=== PATIENT | female | born 1970 | race Caucasian/White ===

== ENCOUNTER 2021-02-25 08:48 | Observation (INO) | payer OTHER, SELFPAY ==
[2021-02-25] VITALS (14 sets, daily range): BP systolic 102–159; BP diastolic 70–89; PULSE 84–109; RESP 16–18; TEMP 36.1–37.6; O2SAT 92–97; BMI 36.6; BMI 37.5
--- NOTE | 2021-02-25 | APP_PTH ---
PATIENT: TONA LEVINE LOC: [facility]3 U#:[id number] AGE/SX: 50/F ROOM: [facility]312 RE02/25/[address]: Dr. Breezy Chavez MD : 1970 BED: 1 DIS: 02/26/2021 SPEC #: [id number] RECD: 02/27/21 08:19 STATUS: ROBERTA JARRELLTed #: [id number] JACQUELINE: 02/25/21 00:[address]: Breezy Chavez DEPT: SURGICAL PATHOLOGY RECD BY: Rod Hall ENTERED: 02/27/21 09:57 SP TYPE: APPENDIX OTHR DR: No Primary Care Phys Tissues: Appendix, NOS Procedures: Surgery Specimen Level III HEADER OPERATION: Laparoscopic appendectomy PRE-OP DIAGNOSIS: Acute appendicitis with purulent peritonitis TISSUE SUBMITTED: Appendix MICROSCOPIC DIAGNOSIS Appendix, appendectomy: Acute purulent appendicitis and periappendicitis. JULY:elel 02/28/2021 MICROSCOPIC DESCRIPTION Slides are reviewed. GROSS DESCRIPTION Received in fixative is one container labeled with the patient's name and designated appendix. The specimen consists of a C-shaped appendix measuring 6 cm in length and up to 1.2 cm in diameter. The attached periappendiceal adipose tissue measures up to 1.5 cm in width. The serosa is congested. No obvious perforation is identified. The serosal surface is covered with murcia, purulent exudate. The lumen is filled with fecal material. No fecalith is identified. Jetting Machine Operator sections are submitted in one cassette. / JULY:elle 02/27/21 TC:2 CPT: 37907
--- NOTE | 2021-02-25 09:22 | CT_ITS ---
We are attempting to reach an attending provider to discuss findings. An addendum with communication details will be sent when the communication is complete. STUDY: CT ABDOMEN AND PELVIS WITH CONTRAST REASON FOR EXAM: Female, 50 years old. RLQ pain, eval appendicitis RADIATION DOSAGE (If Supplied By Facility): CTDIvol = ( 16.01 ) mGy, DLP = ( 1200.68 ) mGycm TECHNIQUE: Transaxial images were obtained from the dome of the diaphragm to the symphysis pubis without oral contrast. IV 100mL Isovue-370 was administered. Sagittal and coronal images were reconstructed. Individualized dose optimization techniques were used for this CT. COMPARISON: None. FINDINGS: The visualized lung bases are unremarkable. The visualized portions of the heart are within normal limits. Normal liver. Normal gallbladder and extrahepatic biliary system. Normal spleen. Normal pancreas. Normal bilateral adrenal glands. 3.5 cm cyst in the lower pole the right kidney. Normal left kidney. Normal visualized stomach. Normal small intestine. Normal colon. There is a tubular, thick-walled appendix (>7mm), consistent with acute appendicitis. No likely a fluid collection to suggest abscess. No pneumoperitoneum to suggest perforation. Normal abdominal aorta. Normal inferior vena cava. Normal retroperitoneum. Normal urinary bladder. Normal abdominal wall. Mild levoscoliosis of the lumbar spine with degenerative disc disease. CT/Abdomen/Pelvis W IV Cont ONLY IMPRESSION: Acute appendicitis without abscess or perforation. Electronically Signed: Parveen Ludwig MD at 10:57 EDT Tel , Service support ,
[2021-02-25] MEDS: Morphine 4 MG/ML Syringe IV (09:32)
[2021-02-25] MEDS: Ondansetron 4 MG/2 ML Vial IV (09:32)
[2021-02-25 09:40] LABS: Mucous, Urine 0 SEEN /hpf (<or=2+); Squamous Epithelial Cells - UA 0 SEEN /hpf (5-10)
--- NOTE | 2021-02-25 09:43 | ED.VIS.GI ---
HPI HPI - GI History of Present Illness Chief Complaint: Abd Pain Informant: patient Narrative Narrative: Patient is a 50-year-old previously healthy female who presents to the emergency department for abdominal pain. It initially started yesterday in the right upper quadrant. It has been progressively getting worse and is now in the right lower quadrant. She does have a history of kidney stones but does not feel that this is necessarily similar. She tried taking Excedrin for this which did not give her any relief. She currently describes the pain as severe and stabbing. No known aggravating or relieving factors. She has not had any previous abdominal surgeries. She has been nauseous but not vomiting. She denies any change in bowel movements. No urinary symptoms. No chest pain, shortness of breath. She denies fevers or chills. PFSH PFSH Medical History Alcohol use Kidney stones Right tennis elbow Smoker Home Medications NK 02/25/21 [History Last Taken Unknown] Allergy/AdvReac Type Severity Reaction Status Date / Time No Known Allergies Allergy Verified 02/25/21 08:49 Social History Smoking Status: Current every day smoker tobacco type: cigarettes ROS ROS ED Constitutional Constitutional ED: Denies chills or fever(s) Eyes Eyes: Denies change in vision ENT ENT ED: Denies epistaxis or rhinorrhea Cardiovascular Cardiovascular: Denies chest pain or palpitations Respiratory/Chest Respiratory/Chest: Denies cough, dyspnea or dyspnea on exertion Gastrointestinal Gastrointestinal: Reports abdominal pain and nausea; Denies diarrhea or vomiting Genitourinary Genitourinary ED: Denies dysuria, hematuria or urinary frequency Musculoskeletal Musculoskeletal: Denies back pain or neck pain Integumentary Denies rash Neurologic Neurologic: Denies dizziness, headache(s) or weakness EXAM Physical Exam Narrative Exam Narrative: Sitting at bedside bracing her right side of the abdomen Const Vital Signs: 02/25/21 08:49 02/25/21 10:31 Temperature 96.9 F L Temperature Source Temporal Pulse Rate 102 H 91 Respiratory Rate 16 16 Blood Pressure 134/89 H 121/87 H Blood Pressure Mean 104 98 Pulse Ox 96 93 Oxygen Delivery Method Room Air Room Air Positive well nourished and well developed General Appearance ED: well developed HEENT Reports normocephalic and head/scalp atraumatic Eyes PERRL and EOMs intact bilaterally Neck supple Resp normal respiratory effort and clear to auscultation bilaterally Auscultation: Negative for rales, rhonchi or wheezes Cardio regular rate, regular rhythm and no murmurs GI GI Narrative: Tender mostly in the right lower quadrant but also in the right upper quadrant. No rebound or guarding. Normal bowel sounds. Negative Hyman sign. Palpation: soft Back/Spine no CVA tenderness Extremity normal to inspection General Extremety ED: Negative for edema or tenderness General Extremity: Negative for edema Neuro oriented x3, CN's II-XII intact bilaterally and no sensory deficits noted Sensorium / Orientation: alert Motor Exam: strength 5/5 throughout Psych mental status grossly normal Skin no rashes or lesions noted MDM MDM MDM Narrative Medical decision making narrative: Patient presents to the ED for abdominal pain since yesterday. She has been nauseous with this. Upon arrival to the emergency department she is mildly tachycardic but otherwise normal vital signs. She does appear in pain holding the right side of her abdomen. She is treated symptomatically with a dose of morphine and Zofran. Will check basic lab work, urinalysis and CT scan of the abdomen/pelvis. Patient does have a leukocytosis. CT scan was obtained and showed a acute appendicitis without abscess or rupture. Patient started on Zosyn. I did speak with the general surgeon who was willing to admit the patient. She otherwise has remained stable throughout ED stay. She understands and is agreeable with this plan. Lab Data Labs: Laboratory Results - last 24 hr 02/25/21 02/25/21 02/25/21 09:35 09:35 09:35 WBC 20.7 H RBC 4.86 Hgb 16.1 H Hct 46.3 MCV 95.3 MCH 33.1 H MCHC 34.8 RDW Std Deviation 42.5 RDW Coeff of Job 12.2 Plt Count 263 MPV 10.2 Immature Gran % (Auto) 0.600 Neut % (Auto) 84.8 H Lymph % (Auto) 8.0 L [place] % (Auto) 6.1 Eos % (Auto) 0.2 Baso % (Auto) 0.3 Absolute Neuts (auto) 17.6 H Absolute Lymphs (auto) 1.66 Nucleated RBC % 0 Sodium 139 Potassium 3.8 Chloride 107 Carbon Dioxide 24.0 Anion Gap 8 BUN 9 Creatinine 0.98 Estim Creat Clear Calc 54.32 Est GFR (MDRD) Af Amer 77 Est GFR (MDRD) Non-Af 64 BUN/Creatinine Ratio 9.2 L Glucose 152 H Lactic Acid Calcium 9.2 Total Bilirubin 0.70 AST 14 L ALT 33 Alkaline Phosphatase 96 Total Protein 7.8 Albumin 4.0 Globulin 3.8 Albumin/Globulin Ratio 1.1 Lipase 67 L Urine Color Yellow Urine Clarity Sl. Cloudy Urine pH 5.0 Ur Specific [place] 1.020 Urine Protein 15 H Urine Glucose (UA) Normal Urine Ketones Negative Urine Occult Blood 50 H Urine Nitrite Negative Urine Bilirubin Negative Urine Urobilinogen Normal Ur Leukocyte Esterase 25 H Urine RBC 5-10 SEEN Urine WBC 25-50 SEEN Ur Squamous Epith Cells 0 SEEN Urine Bacteria 1+ Urine Mucus 0 SEEN Urine Test Negative 02/25/21 09:40 WBC RBC Hgb Hct MCV MCH MCHC RDW Std Deviation RDW Coeff of Job Plt Count MPV Immature Gran % (Auto) Neut % (Auto) Lymph % (Auto) [place] % (Auto) Eos % (Auto) Baso % (Auto) Absolute Neuts (auto) Absolute Lymphs (auto) Nucleated RBC % Sodium Potassium Chloride Carbon Dioxide Anion Gap BUN Creatinine Estim Creat Clear Calc Est GFR (MDRD) Af Amer Est GFR (MDRD) Non-Af BUN/Creatinine Ratio Glucose Lactic Acid 2.2 H* Calcium Total Bilirubin AST ALT Alkaline Phosphatase Total Protein Albumin Globulin Albumin/Globulin Ratio Lipase Urine Color Urine Clarity Urine pH Ur Specific [place] Urine Protein Urine Glucose (UA) Urine Ketones Urine Occult Blood Urine Nitrite Urine Bilirubin Urine Urobilinogen Ur Leukocyte Esterase Urine RBC Urine WBC Ur Squamous Epith Cells Urine Bacteria Urine Mucus Urine Test Radiography Diagnostic Testing: Radiology Impression Abdomen/Pelvis CT 02/25/21 09:22 IMPRESSION: Acute appendicitis without abscess or perforation. Electronically Signed: Parveen Ludwig MD at 10:57 EDT Tel , Service support , ADDENDUM: 02/25/21 1115 IMPRESSION: Acute appendicitis without abscess or perforation. N.B. : The above information has been verbally conveyed by Parveen Ludwig MD to Dr. Noland [id number] MD, on 02/25/2021 11:08:31 (ET). Electronically Signed: Parveen Ludwig MD at 10:57 EDT Tel , Service support , Discharge Plan Dx/Rx/DC Orders Clinical Impression: Acute appendicitis, Abdominal pain Disposition Disposition: Acute Care Hospital [facility] Discharge Date/Time: 02/25/21 11:53
[2021-02-25 09:59] LABS: Absolute Lymphocyte Count 1.66 X10^3/uL (0.83-4.51); Absolute Neutrophil Count 17.6 X10^3/uL (2.0-7.7); Basophil# 0.06 X10^3/uL; Basophil% 0.3 % (0-1); Eosinophil# 0.05 X10^3/uL; Eosinophils% 0.2 % (0-5); Hematocrit 46.3 % (37-47); Hemoglobin 16.1 g/dL (12.0-15.0); Lymphocyte # 1.66 X10^3/ul (0.83-4.51); Mean Corp Hgb Conc 34.8 g/dL (32-36); Mean Corpuscular Hgb 33.1 pg (27.0-32.0); Mean Corpuscular Volume 95.3 fL (81-99); Mean Platelet Vol. 10.2 fl (6.2-12.0); Monocyte# 1.26 X10^3/uL; Monocyte% 6.1 % (0-10); NRBC Flagged by Analyzer 0 % (0-5); Neutrophil # 17.58 X10^3/uL (2.7-7.7); Neutrophil % 84.8 % (47-70); Platelet Count 263 K/mm3 (150-450); RBC Distribution Width CV 12.2 % (11.6-14.6); RBC Distribution Width SD 42.5 fl (35.1-43.9); Red Blood Count 4.86 M/mm3 (4.2-5.4); White Blood Count 20.7 K/mm3 (4.4-11.0)
[2021-02-25 10:02] LABS: ALB/GLOB Ratio 1.1 RATIO (0.9-2.4); AST(SGOT) 14 U/L (15-37); Alanine Aminotransfer ALT/SGPT 33 U/L (13-56); Alkaline Phosphatase 96 U/L (45-117); Anion Gap 8 (5-15); BUN 9 mg/dL (7-18); BUN/Creat Ratio 9.2 RATIO (10-20); Calcium,Total 9.2 mg/dL (8.5-10.1); Chloride 107 mmol/L (98-107); Creatinine, Serum 0.98 mg/dL (0.55-1.02); EST Glomerular Filtration Rate 64 mL/min (>60); Est Glom Filt Rate - Afr Amer 77 mL/min (>60); Estimated Creatinine Clearance 54.32 ml/min; Globulin 3.8 g/dL (2.2-4.2); Glucose 152 mg/dL (74-106); Lipase 67 U/L (73-393); Potassium 3.8 mmol/L (3.5-5.1); Protein, Total 7.8 g/dL (6.4-8.2); Sodium Level 139 mmol/L (136-145)
[2021-02-25 10:18] LABS: Color, Urine Yellow (Yellow); Glucose, Dipstick Normal (Normal); Ketone-Dipstick Negative (Negative); Leukocyte Esterase-Dipstick 25 /ul (Negative); Nitrite-Dipstick Negative (Negative); Occult Blood-Urine 50 /ul (Negative); Protein-Dipstick 15 mg/dl (Negative); Urine Bilirubin Dipstick Negative (Negative); Urine Clarity Sl. Cloudy (Clear); Urine Urobilinogen Normal (Normal)
[2021-02-25 10:23] LABS: Bacteria 1+ /hpf (None Seen)
[2021-02-25 10:24] LABS: Red Blood Cells-Urine 5-10 SEEN /hpf (0-5); White Blood Cells 25-50 SEEN /hpf (0-5)
[2021-02-25 10:26] LABS: Internal QC Validated? YES +Cl - CLEAR BKGD; Pregnancy, Urine Negative Negative
[2021-02-25] MEDS: HYDROmorphone 1 MG/ML Syringe IV (10:29)
[2021-02-25 10:45] LABS: Lactic Acid 2.2 mmol/L (0.4-1.9)
--- NOTE | 2021-02-25 11:16 | EKG12_ITS ---
Test Reason : PREOP Blood Pressure : / mmHG Vent. Rate : 095 BPM Atrial Rate : 095 BPM P-R Int : 136 ms QRS Dur : 078 ms QT Int : 356 ms P-R-T Axes : 028 -09 039 degrees QTc Int : 447 ms Normal sinus rhythm Normal ECG Confirmed by BEATRICE MONZON, NARA ([id number]), multimedia editor BRIGETTE HART ([id number]) on 03/02/2021 9:21:10 AM Referred By: MARIA LUISA/SURINDER Confirmed By:NARA BARRON MD
[2021-02-25] MEDS: Morphine 2 MG/ML Syringe IV ×4 (12:33→23:43)
[2021-02-25] MEDS: 0.9% Saline Lock 10 ML Syringe IV ×3 (12:33→23:49)
[2021-02-25] MEDS: Lactated Ringers 1,000 ML 100 ML IV (12:50)
--- NOTE | 2021-02-25 13:22 | PCM.HP.STD ---
HPI - General General Date of Admission: 02/25/21 HPI Narrative TONA LEVINE, is a 50 F who presents with abdominal pain since yesterday morning. Patient reports nausea but no vomiting. No fevers or chills. Pain is in the right lower quadrant. [facility] Medical History Alcohol use Kidney stones Right tennis elbow Smoker Home Medications NK 02/25/21 [History Last Taken Unknown] Allergy/AdvReac Type Severity Reaction Status Date / Time No Known Allergies Allergy Verified 02/25/21 08:49 Social History Smoking Status: Current every day smoker tobacco type: cigarettes ROS Constitutional Constitutional: Denies anorexia or fatigue ENT HEENT: Denies abnormal hearing Cardiovascular Cardiovascular: Denies chest pain Respiratory/Chest Respiratory/Chest: Denies cough Gastrointestinal Gastrointestinal: Reports abdominal pain and nausea; Denies constipation, diarrhea or vomiting Genitourinary Genitourinary: Denies change in urinary stream Musculoskeletal Musculoskeletal: Denies abnormal gait Integumentary Integumentary: Denies jaundice Neurologic Neurologic: Denies abnormal gait Vital Signs Vital Signs Vital Signs: 02/25/21 08:49 02/25/21 10:31 02/25/21 11:27 Temperature 96.9 F L 98 F Temperature Source Temporal Oral Pulse Rate 102 H 91 90 Respiratory Rate 16 16 16 Blood Pressure 134/89 H 121/87 H 134/83 H Blood Pressure Mean 104 98 100 Blood Pressure Source Blood Pressure Position Blood Pressure Location Pulse Ox 96 93 94 Oxygen Delivery Method Room Air Room Air Room Air 02/25/21 12:13 Temperature 98.2 F Temperature Source Oral Pulse Rate 103 H Respiratory Rate 18 Blood Pressure 143/87 H Blood Pressure Mean 105 Blood Pressure Source Monitor Blood Pressure Position Semi-Fowlers Blood Pressure Location Right Arm Pulse Ox 97 Oxygen Delivery Method Room Air Weight Weight: 211 lb 12.8 oz Body Mass Index (BMI) 37.5 Physical Exam Const oriented x3 and no apparent distress Resp normal respiratory effort Cardio regular rate and regular rhythm GI soft to palpation Inspection: Negative for abdominal distention Palpation: tender RLQ Extremity normal to inspection Results Lab / Micro Data Result Diagrams: 02/25/21 09:35 02/25/21 09:35 Labs: Laboratory Results - last 24 hr 02/25/21 02/25/21 02/25/21 09:35 09:35 09:35 WBC 20.7 H RBC 4.86 Hgb 16.1 H Hct 46.3 MCV 95.3 MCH 33.1 H MCHC 34.8 RDW Std Deviation 42.5 RDW Coeff of Job 12.2 Plt Count 263 MPV 10.2 Immature Gran % (Auto) 0.600 Neut % (Auto) 84.8 H Lymph % (Auto) 8.0 L [place] % (Auto) 6.1 Eos % (Auto) 0.2 Baso % (Auto) 0.3 Absolute Neuts (auto) 17.6 H Absolute Lymphs (auto) 1.66 Nucleated RBC % 0 Sodium 139 Potassium 3.8 Chloride 107 Carbon Dioxide 24.0 Anion Gap 8 BUN 9 Creatinine 0.98 Estim Creat Clear Calc 54.32 Est GFR (MDRD) Af Amer 77 Est GFR (MDRD) Non-Af 64 BUN/Creatinine Ratio 9.2 L Glucose 152 H Lactic Acid Calcium 9.2 Total Bilirubin 0.70 AST 14 L ALT 33 Alkaline Phosphatase 96 Total Protein 7.8 Albumin 4.0 Globulin 3.8 Albumin/Globulin Ratio 1.1 Lipase 67 L Urine Color Yellow Urine Clarity Sl. Cloudy Urine pH 5.0 Ur Specific [place] 1.020 Urine Protein 15 H Urine Glucose (UA) Normal Urine Ketones Negative Urine Occult Blood 50 H Urine Nitrite Negative Urine Bilirubin Negative Urine Urobilinogen Normal Ur Leukocyte Esterase 25 H Urine RBC 5-10 SEEN Urine WBC 25-50 SEEN Ur Squamous Epith Cells 0 SEEN Urine Bacteria 1+ Urine Mucus 0 SEEN Urine Test Negative 02/25/21 09:40 WBC RBC Hgb Hct MCV MCH MCHC RDW Std Deviation RDW Coeff of Job Plt Count MPV Immature Gran % (Auto) Neut % (Auto) Lymph % (Auto) [place] % (Auto) Eos % (Auto) Baso % (Auto) Absolute Neuts (auto) Absolute Lymphs (auto) Nucleated RBC % Sodium Potassium Chloride Carbon Dioxide Anion Gap BUN Creatinine Estim Creat Clear Calc Est GFR (MDRD) Af Amer Est GFR (MDRD) Non-Af BUN/Creatinine Ratio Glucose Lactic Acid 2.2 H* Calcium Total Bilirubin AST ALT Alkaline Phosphatase Total Protein Albumin Globulin Albumin/Globulin Ratio Lipase Urine Color Urine Clarity Urine pH Ur Specific [place] Urine Protein Urine Glucose (UA) Urine Ketones Urine Occult Blood Urine Nitrite Urine Bilirubin Urine Urobilinogen Ur Leukocyte Esterase Urine RBC Urine WBC Ur Squamous Epith Cells Urine Bacteria Urine Mucus Urine Test Micro: Microbiology 02/25/21 11:30 SARS-CoV-2 Antigen (Rapid) - Final Interface Orders Radiology Impression Abdomen/Pelvis CT 02/25/21 09:22 IMPRESSION: Acute appendicitis without abscess or perforation. Electronically Signed: Parveen Ludwig MD at 10:57 EDT Tel , Service support , ADDENDUM: 02/25/21 1115 IMPRESSION: Acute appendicitis without abscess or perforation. N.B. : The above information has been verbally conveyed by Parveen Ludwig MD to Dr. Noland [id number] MD, on 02/25/2021 11:08:31 (ET). Electronically Signed: Parveen Ludwig MD at 10:57 EDT Tel , Service support , Assessment & Plan Assessment/Plan (1) Acute appendicitis: QUALIFIERS: Acute appendicitis type: unspecified acute appendicitis type Qualified Code(s): K35.80 - Unspecified acute appendicitis PLAN: The patient has a very elevated white count as well as thickening of the appendix on CT scan. Her pain is in her right lower quadrant and her history suggest acute appendicitis. I discussed laparoscopic appendectomy with the patient in detail. I discussed the risks including but not limited to bleeding, infection, injury other organs such as the bowel, bladder, ureter. Patient understands all the risks and will proceed with laparoscopic appendectomy. Breezy Chavez MD Pager: [facility] [address] [place] [address], [address] [place] [address] Office:
[2021-02-25 14:07] LABS: Reflex Lactate? Y
[2021-02-25] MEDS: Bupiv/Epi 0.25% 30 ML Vial (14:40)
[2021-02-25] MEDS: 0.9% Normal Saline 1,000 ML 100 ML IV (14:45)
--- NOTE | 2021-02-25 14:47 | OP.PCM_ITS ---
Problems Associated Problem List Diagnoses (1) Acute appendicitis: Report of Operation Date of Procedure: 02/25/21 Pre-Operative Diagnosis: Acute appendicitis Post-Operative Diagnosis: Acute appendicitis with purulent peritonitis Surgery/Procedure Performed:: Laparoscopic appendectomy Specimen's removed: Appendix Drains: SHARONA to bulb suction Description of Procedure: The patient was brought into the operating room and general anesthesia was induced. The left arm was tucked and the abdomen was prepped and draped in usual sterile fashion. A small midline incision was made superior to the umbilicus and deepened to the level of the fascia. The fascia was elevated and incised. The peritoneum was also elevated and incised. A fing er sweep was performed and a balloon trocar was placed into the abdomen and inflated. The abdomen was insufflated to 15 mmHg and the camera was inserted and the abdomen was inspected for any injuries upon entering the abdomen. There were none. The patient was placed in Trendelenburg position and a 5 mm ports placed in the left lower quadrant and suprapubic areas under direct visualization. Next using atraumatic bowel graspers the appendix was identified. There was purulent peritonitis throughout the abdomen with purulent material throughout the abdomen. The appendix was grasped and elevated and Enseal was used to take down the mesoappendix. A stapler was used to come across the base of the appendix. The appendix was then placed in Endo Catch bag and removed through the umbilical incision. The staple line was inspected and found to be hemostatic and intact. The abdomen was irrigated with copious amounts of saline and suctioned dry. A 15 [place] round drain was placed through the left lower quadrant incision and into the pelvis and sutured in place using 3-0 nylon suture. The 5 mm port was removed under direct visualization. The balloon trocar was deflated and removed and all the air was removed from the abdomen. The umbilical incision fascia was closed with an 0 Vicryl [id number] suture. The incisions were then irrigated with saline and dried. Local anesthetic was injected into the incision sites. The skin incisions were then closed with interrupted 4-0 Monocryl suture and Steri- Strips. Bandages were applied and the patient was awoken and taken to PACU in stable condition. Patient tolerated the procedure well. Admit VTE Documentation VTE Mechan Device Prophylaxis: SCD's
[2021-02-25 15:11] LABS: Lactic Acid 2.7 mmol/L (0.4-1.9)
[2021-02-25] MEDS: 0.9% Normal Saline 1,000 ML 999 ML IV (15:20)
[2021-02-25] MEDS: 0.9% Normal Saline 1,000 ML 125 ML IV ×2 (16:31→23:54)
[2021-02-25 17:36] LABS: Lactic Acid 1.6 mmol/L (0.4-1.9)
[2021-02-25] MEDS: Acetaminophen 325 MG Tablet 650 MG PO (20:27)
[2021-02-25] MEDS: Ketorolac 15 MG/ML Vial IV (23:44)
[2021-02-26 00:11] VITALS: O2SAT 92
[2021-02-26 02:11] VITALS: BP 114/66; PULSE 76; RESP 16; TEMP 36.7; O2SAT 97
[2021-02-26 05:50] LABS: Absolute Lymphocyte Count 1.64 X10^3/uL (0.83-4.51); Absolute Neutrophil Count 10.4 X10^3/uL (2.0-7.7); Basophil# 0.03 X10^3/uL; Basophil% 0.2 % (0-1); Eosinophil# 0.09 X10^3/uL; Eosinophils% 0.7 % (0-5); Hematocrit 36.4 % (37-47); Hemoglobin 12.1 g/dL (12.0-15.0); Lymphocyte # 1.64 X10^3/ul (0.83-4.51); Lymphocyte % 12.1 % (19-41); Mean Corp Hgb Conc 33.2 g/dL (32-36); Mean Corpuscular Hgb 32.5 pg (27.0-32.0); Mean Corpuscular Volume 97.8 fL (81-99); Monocyte# 1.39 X10^3/uL; Monocyte% 10.3 % (0-10); NRBC Flagged by Analyzer 0 % (0-5); Neutrophil # 10.36 X10^3/uL (2.7-7.7); Neutrophil % 76.4 % (47-70); Platelet Count 177 K/mm3 (150-450); RBC Distribution Width CV 12.8 % (11.6-14.6); RBC Distribution Width SD 45.8 fl (35.1-43.9); Red Blood Count 3.72 M/mm3 (4.2-5.4); White Blood Count 13.6 K/mm3 (4.4-11.0)
[2021-02-26 06:11] VITALS: BP 140/74; PULSE 94; RESP 18; TEMP 36.8; O2SAT 92
[2021-02-26 06:12] LABS: Anion Gap 4 (5-15); BUN 7 mg/dL (7-18); BUN/Creat Ratio 8.2 RATIO (10-20); Calcium,Total 7.7 mg/dL (8.5-10.1); Chloride 110 mmol/L (98-107); Creatinine, Serum 0.86 mg/dL (0.55-1.02); EST Glomerular Filtration Rate 74 mL/min (>60); Est Glom Filt Rate - Afr Amer 90 mL/min (>60); Estimated Creatinine Clearance 64.74 ml/min; Glucose 123 mg/dL (74-106); Potassium 3.4 mmol/L (3.5-5.1); Sodium Level 140 mmol/L (136-145)
[2021-02-26] MEDS: Morphine 2 MG/ML Syringe IV (06:14)
[2021-02-26] MEDS: Acetaminophen 325 MG Tablet 650 MG PO ×3 (06:14→18:52)
[2021-02-26] MEDS: 0.9% Saline Lock 10 ML Syringe IV ×2 (06:19→10:37)
[2021-02-26] MEDS: 0.9% Normal Saline 1,000 ML 125 ML IV ×2 (06:20→14:23)
--- NOTE | 2021-02-26 06:35 | NURSING ---
Patient ambulated in hallway with 1 assist and walker.
--- NOTE | 2021-02-26 07:39 | PCM.PN.SRG ---
Subjective Subjective Patient is have lower pelvic pain. She is not having any nausea or vomiting. She tolerated clear liquids. She is not passing any flatus yet. Objective Data Objective Data Vital Signs: Vital Signs Temp Pulse Resp BP Pulse Ox 98.3 F 94 18 140/74 H 92 02/26/21 06:11 02/26/21 06:11 02/26/21 06:11 02/26/21 06:11 02/26/21 06:11 Oxygen Flow Rate (L/min) 2 Oxygen Delivery Method Room Air Weight: 211 lb 12.8 oz Body Mass Index (BMI) 37.5 Intake & Output: Intake and Output for Last 24 Hours 02/24/21 02/25/21 02/26/21 23:59 23:59 23:59 Intake Total 4122.92 / 4122.92 1054.17 / 1054.17 Output Total 250 / 250 825 / 825 Balance 3872.92 / 3872.92 229.17 / 229.17 Lab / Micro Data Result Diagrams: 02/26/21 05:32 02/26/21 05:32 Labs: Laboratory Results - last 24 hr 02/25/21 02/25/21 02/25/21 09:35 09:35 09:35 WBC 20.7 H RBC 4.86 Hgb 16.1 H Hct 46.3 MCV 95.3 MCH 33.1 H MCHC 34.8 RDW Std Deviation 42.5 RDW Coeff of Job 12.2 Plt Count 263 MPV 10.2 Immature Gran % (Auto) 0.600 Neut % (Auto) 84.8 H Lymph % (Auto) 8.0 L [place] % (Auto) 6.1 Eos % (Auto) 0.2 Baso % (Auto) 0.3 Absolute Neuts (auto) 17.6 H Absolute Lymphs (auto) 1.66 Nucleated RBC % 0 Sodium 139 Potassium 3.8 Chloride 107 Carbon Dioxide 24.0 Anion Gap 8 BUN 9 Creatinine 0.98 Estim Creat Clear Calc 54.32 Est GFR (MDRD) Af Amer 77 Est GFR (MDRD) Non-Af 64 BUN/Creatinine Ratio 9.2 L Glucose 152 H Lactic Acid Calcium 9.2 Total Bilirubin 0.70 AST 14 L ALT 33 Alkaline Phosphatase 96 Total Protein 7.8 Albumin 4.0 Globulin 3.8 Albumin/Globulin Ratio 1.1 Lipase 67 L Urine Color Yellow Urine Clarity Sl. Cloudy Urine pH 5.0 Ur Specific [place] 1.020 Urine Protein 15 H Urine Glucose (UA) Normal Urine Ketones Negative Urine Occult Blood 50 H Urine Nitrite Negative Urine Bilirubin Negative Urine Urobilinogen Normal Ur Leukocyte Esterase 25 H Urine RBC 5-10 SEEN Urine WBC 25-50 SEEN Ur Squamous Epith Cells 0 SEEN Urine Bacteria 1+ Urine Mucus 0 SEEN Urine Test Negative 02/25/21 02/25/21 02/25/21 09:40 14:35 17:04 WBC RBC Hgb Hct MCV MCH MCHC RDW Std Deviation RDW Coeff of Job Plt Count MPV Immature Gran % (Auto) Neut % (Auto) Lymph % (Auto) [place] % (Auto) Eos % (Auto) Baso % (Auto) Absolute Neuts (auto) Absolute Lymphs (auto) Nucleated RBC % Sodium Potassium Chloride Carbon Dioxide Anion Gap BUN Creatinine Estim Creat Clear Calc Est GFR (MDRD) Af Amer Est GFR (MDRD) Non-Af BUN/Creatinine Ratio Glucose Lactic Acid 2.2 H* 2.7 H* 1.6 Calcium Total Bilirubin AST ALT Alkaline Phosphatase Total Protein Albumin Globulin Albumin/Globulin Ratio Lipase Urine Color Urine Clarity Urine pH Ur Specific [place] Urine Protein Urine Glucose (UA) Urine Ketones Urine Occult Blood Urine Nitrite Urine Bilirubin Urine Urobilinogen Ur Leukocyte Esterase Urine RBC Urine WBC Ur Squamous Epith Cells Urine Bacteria Urine Mucus Urine Test 02/26/21 02/26/21 05:32 05:32 WBC 13.6 H RBC 3.72 L Hgb 12.1 Hct 36.4 L MCV 97.8 MCH 32.5 H MCHC 33.2 RDW Std Deviation 45.8 H RDW Coeff of Job 12.8 Plt Count 177 MPV 10.0 Immature Gran % (Auto) 0.300 Neut % (Auto) 76.4 H Lymph % (Auto) 12.1 L [place] % (Auto) 10.3 H Eos % (Auto) 0.7 Baso % (Auto) 0.2 Absolute Neuts (auto) 10.4 H Absolute Lymphs (auto) 1.64 Nucleated RBC % 0 Sodium 140 Potassium 3.4 L Chloride 110 H Carbon Dioxide 26.0 Anion Gap 4 L BUN 7 Creatinine 0.86 Estim Creat Clear Calc 64.74 Est GFR (MDRD) Af Amer 90 Est GFR (MDRD) Non-Af 74 BUN/Creatinine Ratio 8.2 L Glucose 123 H Lactic Acid Calcium 7.7 L Total Bilirubin AST ALT Alkaline Phosphatase Total Protein Albumin Globulin Albumin/Globulin Ratio Lipase Urine Color Urine Clarity Urine pH Ur Specific [place] Urine Protein Urine Glucose (UA) Urine Ketones Urine Occult Blood Urine Nitrite Urine Bilirubin Urine Urobilinogen Ur Leukocyte Esterase Urine RBC Urine WBC Ur Squamous Epith Cells Urine Bacteria Urine Mucus Urine Test Micro: Microbiology 02/25/21 11:30 Interface Orders SARS-CoV-2 Antigen (Rapid) - Final Radiography Diagnostic Testing: Radiology Impression Abdomen/Pelvis CT 02/25/21 09:22 IMPRESSION: Acute appendicitis without abscess or perforation. Electronically Signed: Parveen Ludwig MD at 10:57 EDT Tel , Service support , ADDENDUM: 02/25/21 1115 IMPRESSION: Acute appendicitis without abscess or perforation. N.B. : The above information has been verbally conveyed by Parveen Ludwig MD to Dr. Noland [id number] MD, on 02/25/2021 11:08:31 (ET). Electronically Signed: Parveen Ludwig MD at 10:57 EDT Tel , Service support , Physical Exam Const oriented x3 and no apparent distress Resp normal respiratory effort Cardio regular rate and regular rhythm GI soft to palpation Palpation: tender suprapubic Assessment & Plan Assessment/Plan (1) Acute appendicitis: QUALIFIERS: Acute appendicitis type: unspecified acute appendicitis type Qualified Code(s): K35.80 - Unspecified acute appendicitis PLAN: The patient had acute appendicitis with purulent peritonitis. Drain was left in place to remove all the irrigation. I will remove the drain this morning. She is not passing flatus yet but tolerated clears with no nausea or vomiting. When she passes flatus I will advance her diet as tolerated and possibly discharge. Breezy Chavez MD Pager: [facility] [address] [place] [address], [address] [place] [address] Office:
--- NOTE | 2021-02-26 07:53 | DS.PCM_ITS ---
Providers Date of Admission: 02/25/21 Primary Care Physician: Alejandra Primary Care Phys Reason For Visit: ACUTE APPENDICITIS Diagnosis Discharge Diagnosis (1) Acute appendicitis: Status: Acute Code(s): K35.80 - Unspecified acute appendicitis Qualifiers: Acute appendicitis type: unspecified acute appendicitis type Qualified Code(s): K35.80 - Unspecified acute appendicitis Medications at Discharge Home Medications NK 02/25/21 acetaminophen [Tylenol] 650 mg PO Q4H PRN PRN #0 tab 02/26/21 oxycodone 5 - 10 mg PO Q4H PRN PRN 5 Days #30 tab 02/26/21 Hospital Course Operations appendectomy Summary of Care Provided Hospital Course: Patient was admitted with right lower quadrant pain a CT scan that showed appendicitis. The patient was taken to surgery and found to have purulent peritonitis with appendicitis. The patient had copious irrigation of the abdomen with a drain placement. The following morning the drain was removed and the patient was kept on antibiotics. Once the patient was passing flatus the diet was advanced and the patient was discharged. Weight / BMI Weight Weight: 211 lb 12.8 oz Body Mass Index (BMI) 37.5 ABG / Lab / Microbiology Data Result Diagrams: 02/26/21 05:32 02/26/21 05:32 Laboratory: Laboratory Results - last 24 hr 02/25/21 02/25/21 02/25/21 09:35 09:35 09:35 WBC 20.7 H RBC 4.86 Hgb 16.1 H Hct 46.3 MCV 95.3 MCH 33.1 H MCHC 34.8 RDW Std Deviation 42.5 RDW Coeff of Job 12.2 Plt Count 263 MPV 10.2 Immature Gran % (Auto) 0.600 Neut % (Auto) 84.8 H Lymph % (Auto) 8.0 L [place] % (Auto) 6.1 Eos % (Auto) 0.2 Baso % (Auto) 0.3 Absolute Neuts (auto) 17.6 H Absolute Lymphs (auto) 1.66 Nucleated RBC % 0 Sodium 139 Potassium 3.8 Chloride 107 Carbon Dioxide 24.0 Anion Gap 8 BUN 9 Creatinine 0.98 Estim Creat Clear Calc 54.32 Est GFR (MDRD) Af Amer 77 Est GFR (MDRD) Non-Af 64 BUN/Creatinine Ratio 9.2 L Glucose 152 H Lactic Acid Calcium 9.2 Total Bilirubin 0.70 AST 14 L ALT 33 Alkaline Phosphatase 96 Total Protein 7.8 Albumin 4.0 Globulin 3.8 Albumin/Globulin Ratio 1.1 Lipase 67 L Urine Color Yellow Urine Clarity Sl. Cloudy Urine pH 5.0 Ur Specific [place] 1.020 Urine Protein 15 H Urine Glucose (UA) Normal Urine Ketones Negative Urine Occult Blood 50 H Urine Nitrite Negative Urine Bilirubin Negative Urine Urobilinogen Normal Ur Leukocyte Esterase 25 H Urine RBC 5-10 SEEN Urine WBC 25-50 SEEN Ur Squamous Epith Cells 0 SEEN Urine Bacteria 1+ Urine Mucus 0 SEEN Urine Test Negative 02/25/21 02/25/21 02/25/21 09:40 14:35 17:04 WBC RBC Hgb Hct MCV MCH MCHC RDW Std Deviation RDW Coeff of Job Plt Count MPV Immature Gran % (Auto) Neut % (Auto) Lymph % (Auto) [place] % (Auto) Eos % (Auto) Baso % (Auto) Absolute Neuts (auto) Absolute Lymphs (auto) Nucleated RBC % Sodium Potassium Chloride Carbon Dioxide Anion Gap BUN Creatinine Estim Creat Clear Calc Est GFR (MDRD) Af Amer Est GFR (MDRD) Non-Af BUN/Creatinine Ratio Glucose Lactic Acid 2.2 H* 2.7 H* 1.6 Calcium Total Bilirubin AST ALT Alkaline Phosphatase Total Protein Albumin Globulin Albumin/Globulin Ratio Lipase Urine Color Urine Clarity Urine pH Ur Specific [place] Urine Protein Urine Glucose (UA) Urine Ketones Urine Occult Blood Urine Nitrite Urine Bilirubin Urine Urobilinogen Ur Leukocyte Esterase Urine RBC Urine WBC Ur Squamous Epith Cells Urine Bacteria Urine Mucus Urine Test 02/26/21 02/26/21 05:32 05:32 WBC 13.6 H RBC 3.72 L Hgb 12.1 Hct 36.4 L MCV 97.8 MCH 32.5 H MCHC 33.2 RDW Std Deviation 45.8 H RDW Coeff of Job 12.8 Plt Count 177 MPV 10.0 Immature Gran % (Auto) 0.300 Neut % (Auto) 76.4 H Lymph % (Auto) 12.1 L [place] % (Auto) 10.3 H Eos % (Auto) 0.7 Baso % (Auto) 0.2 Absolute Neuts (auto) 10.4 H Absolute Lymphs (auto) 1.64 Nucleated RBC % 0 Sodium 140 Potassium 3.4 L Chloride 110 H Carbon Dioxide 26.0 Anion Gap 4 L BUN 7 Creatinine 0.86 Estim Creat Clear Calc 64.74 Est GFR (MDRD) Af Amer 90 Est GFR (MDRD) Non-Af 74 BUN/Creatinine Ratio 8.2 L Glucose 123 H Lactic Acid Calcium 7.7 L Total Bilirubin AST ALT Alkaline Phosphatase Total Protein Albumin Globulin Albumin/Globulin Ratio Lipase Urine Color Urine Clarity Urine pH Ur Specific [place] Urine Protein Urine Glucose (UA) Urine Ketones Urine Occult Blood Urine Nitrite Urine Bilirubin Urine Urobilinogen Ur Leukocyte Esterase Urine RBC Urine WBC Ur Squamous Epith Cells Urine Bacteria Urine Mucus Urine Test Microbiology: Microbiology 02/25/21 11:30 SARS-CoV-2 Antigen (Rapid) - Final Interface Orders Microbiology 02/25/21 11:30 Interface Orders SARS-CoV-2 Antigen (Rapid) - Final Radiography Diagnostic Testing: Radiology Impression Abdomen/Pelvis CT 02/25/21 09:22 IMPRESSION: Acute appendicitis without abscess or perforation. Electronically Signed: Parveen Ludwig MD at 10:57 EDT Tel , Service support , ADDENDUM: 02/25/21 1115 IMPRESSION: Acute appendicitis without abscess or perforation. N.B. : The above information has been verbally conveyed by Parveen Ludwig MD to Dr. Noland [id number] MD, on 02/25/2021 11:08:31 (ET). Electronically Signed: Parveen Ludwig MD at 10:57 EDT Tel , Service support , D/C Instructions Discharge Diet: Light diet - advance as tolerated Discharge Activity: May Not Drive (for 2-3 days or while taking narcotic pain medications.) and May Shower Lifting Restricted to (Lbs): 20 (for 2 weeks) Call your doctor if your incision/area has: Continuous Slow Oozing, Sudden Increased Bleeding, Increased Pain/ Swelling, Increased Redness and Foul Smelling Discharge Call your doctor if you observe: Fever of 101 or Higher Suture Line Care: Avoid Pulling/Pushing and Avoid Pinching/Bending Cleanse incision/area with: Soap & Water Additional Dressing/Incision Instructions: Keep dressing clean and dry. Change or remove dressing in 2 days. Leave steri strips for 1 week. May protect with a gauze bandaid. Please Follow Up With: Breezy Chavez MD When: Please call to schedule 2 week follow up appointment. [phone] Meaningful Use Info Meaningful Use Diagnoses (Choose all that apply): None applicable Discharge Plan Admission Admit Date/Time: 02/25/21 11:16 Attending Provider: Breezy Chavez Primary Care Provider: Care Physician,No Primary Discharge Orders/Prescriptions Prescriptions: New acetaminophen [Tylenol] 325 mg Tablet 650 mg PO Q4H PRN PRN (Reason: Pain 1-10 Or Fever) Qty: 0 RF: 0 oxycodone 5 mg Tablet 5 - 10 mg PO Q4H PRN PRN (Reason: Pain Score 4-10) 5 Days Qty: 30 RF: 0 No Action NK RF: 0 Referrals / Follow Up: Care Physician,No Primary [Primary Care Provider] - Disposition Disposition (needs filled in before D/C Order can be placed): Home, self care
[2021-02-26] MEDS: Potassium Chloride 10mEq/100mL 10 MEQ/100 ML IV.SOLN. 100 MEQ IV BOLUS ×2 (09:22→10:32)
[2021-02-26] MEDS: oxyCODONE 5 MG Tablet PO ×3 (09:29→18:52)
[2021-02-26 10:15] VITALS: BP 115/65; PULSE 82; RESP 18; TEMP 36.4; O2SAT 95
[2021-02-26] MEDS: Ketorolac 15 MG/ML Vial IV (10:37)
--- NOTE | 2021-02-26 11:47 | NURSING ---
PT AMBULATED LENGTH OF DEPARTMENT - PT STATES +FLATUS. DENIES NAUSEA. DR MENDIETA NOTIFIED. NEW ORDER RECEIVED.
[2021-02-26 13:49] VITALS: BP 118/70; PULSE 81; RESP 18; TEMP 36.5; O2SAT 92
--- NOTE | 2021-02-26 14:17 | NURSING ---
PT TOLERATED YOGURT & SMALL AMOUNT MAC & CHEESE FOR LUNCH. NI INCREASED PAIN, NO NAUSEA. NO BS PRESENT @ THIS TIME. DR MENDIETA NOTIFIED. WANTS PT TO STAY TO SEE HOW SHE TOLERATES DINNER & REASSESS POSSIBLE DC TODAY.
== END 2021-02-26 19:02 | disposition home or self-care (01) ==
LOC: ED 10:08 → MS3 11:22
PROVIDERS: Admitting Provider Surgery; Emergency Provider Emergency Medicine; Visit Provider Surgery
PROC: 0DTJ4ZZ Resection of Appendix, Percutaneous Endoscopic Approach (ICD-10-PCS; CPT 44970; principal; 2021-02-25 14:00)
DX: K35.80 Unspecified acute appendicitis (principal); F17.210 Nicotine dependence, cigarettes, uncomplicated
CPT/HCPCS: 00840; 44970; 36415; 74177; 80048; 80053; 81001; 81025; 83605; 83690; 85025; 87426; 88304; 93005; 96361; 96365; 96366; 96375; 96376; 99218; 99251; 99284; J7030; J7040; J7120; Q9967; A4216; C1760; G0378; G0463; J2405

== ENCOUNTER 2021-02-27 04:54 | Emergency (ER) | payer OTHER, SELFPAY ==
[2021-02-25 13:24] VITALS: BMI 37.5
[2021-02-27 04:55] VITALS: BP 173/90; PULSE 85; RESP 16; TEMP 36.8; O2SAT 98; BMI 40.6
[2021-02-27 04:56] VITALS: BP 173/90; PULSE 85; RESP 16; TEMP 36.8; O2SAT 98
--- NOTE | 2021-02-27 05:18 | RAD_ITS ---
STUDY: X-RAY - ACUTE ABDOMINAL SERIES REASON FOR EXAM: Female, 50 years old. abd pain, recent appy TECHNIQUE: Single view of the chest. Supine, AP and cross [place] AP view(s) of the abdomen were obtained. COMPARISON: None. FINDINGS: The lungs are clear and expanded. Normal size heart. Normal mediastinum and edgardo. Normal visualized pulmonary arteries. Normal visualized aortic arch and descending thoracic aorta. There is a non-specific bowel gas pattern. The soft tissue structures of the abdomen and pelvis are unremarkable. Normal visualized osseous structures. RAD/Acute Abdomen Inc Chest IMPRESSION: Negative x-ray examination of the chest, abdomen, and pelvis. Electronically Signed: Fabrice Sawyer MD at 6:34 EDT Tel , Service support ,
[2021-02-27 05:30] LABS: Bacteria 0 SEEN /hpf (None Seen); Color, Urine Yellow (Yellow); Glucose, Dipstick Normal (Normal); Ketone-Dipstick 5 mg/dl (Negative); Leukocyte Esterase-Dipstick Negative /ul (Negative); Mucous, Urine 0 SEEN /hpf (<or=2+); Nitrite-Dipstick Negative (Negative); Occult Blood-Urine 25 /ul (Negative); Protein-Dipstick Negative (Negative); Squamous Epithelial Cells - UA 0 SEEN /hpf (5-10); Urine Bilirubin Dipstick Negative (Negative); Urine Clarity Clear (Clear); Urine Urobilinogen Normal (Normal); Urine pH 6.5 (5.0 - 8.0); White Blood Cells 0 SEEN /hpf (0-5)
[2021-02-27 05:36] LABS: Red Blood Cells-Urine 0-5 SEEN /hpf (0-5)
[2021-02-27] MEDS: Ketorolac 30 MG/ML Syringe IV (05:49)
[2021-02-27] MEDS: DiphenhydrAMINE 50 MG/ML Syringe 25 MG IV (05:49)
[2021-02-27] MEDS: Metoclopramide 10 MG/2 ML Vial IV (05:49)
[2021-02-27 05:57] VITALS: BP 173/90; PULSE 85; RESP 16; TEMP 36.8; O2SAT 98
[2021-02-27 05:59] LABS: Absolute Lymphocyte Count 0.81 X10^3/uL (0.83-4.51); Absolute Neutrophil Count 10.6 X10^3/uL (2.0-7.7); Basophil# 0.03 X10^3/uL; Basophil% 0.2 % (0-1); Eosinophil# 0.05 X10^3/uL; Eosinophils% 0.4 % (0-5); Hematocrit 38.6 % (37-47); Hemoglobin 13.1 g/dL (12.0-15.0); Lymphocyte # 0.81 X10^3/ul (0.83-4.51); Lymphocyte % 6.6 % (19-41); Mean Corp Hgb Conc 33.9 g/dL (32-36); Mean Corpuscular Hgb 32.6 pg (27.0-32.0); Mean Platelet Vol. 10.5 fl (6.2-12.0); Monocyte# 0.69 X10^3/uL; Monocyte% 5.6 % (0-10); NRBC Flagged by Analyzer 0 % (0-5); Neutrophil % 86.8 % (47-70); Platelet Count 199 K/mm3 (150-450); RBC Distribution Width CV 12.6 % (11.6-14.6); RBC Distribution Width SD 44.4 fl (35.1-43.9); Red Blood Count 4.02 M/mm3 (4.2-5.4); White Blood Count 12.2 K/mm3 (4.4-11.0)
[2021-02-27 06:14] LABS: Anion Gap 7 (5-15); BUN 5 mg/dL (7-18); BUN/Creat Ratio 6.6 RATIO (10-20); Calcium,Total 8.6 mg/dL (8.5-10.1); Chloride 110 mmol/L (98-107); Creatinine, Serum 0.75 mg/dL (0.55-1.02); EST Glomerular Filtration Rate 86 mL/min (>60); Est Glom Filt Rate - Afr Amer 104 mL/min (>60); Estimated Creatinine Clearance 74.23 ml/min; Glucose 149 mg/dL (74-106); Potassium 3.5 mmol/L (3.5-5.1); Sodium Level 142 mmol/L (136-145)
--- NOTE | 2021-02-27 07:19 | EDS_ITS ---
HPI History of Present Illness Chief Complaint: Nausea/Vomiting Detail of Chief Complaint: Headache, nausea, vomiting Informant: patient Onset/Context/Timing Onset: Today Current Severity: Moderate Maximum Severity: Moderate Narrative Narrative: Patient presents secondary to headache, nausea, and vomiting. Patient had acute appendicitis and had an appendectomy performed 2 days ago. She went home from the hospital yesterday. Patient states that she did eat at home last night but went to bed early. She woke early this morning with a hea dache along with nausea and vomiting. She states she has been belching and not passing gas since going home. She was reportedly passing gas while in the hospital. Patient feels her symptoms are secondary to taking oral pain medication on an empty stomach. PFSH PFSH Medical History Alcohol use Kidney stones Post-op pain Right tennis elbow Smoker Home Medications acetaminophen [Tylenol] 650 mg PO Q4H PRN PRN #0 tab 02/26/21 [Rx Last Taken Unknown] amoxicillin-pot clavulanate [Augmentin] 1 tab PO BID #20 tab 02/27/21 [Rx Last Taken Unknown] hydrocodone-acetaminophen 1 tab PO Q6H PRN 3 Days #10 tab 02/27/21 [Rx Last Taken Unknown] ondansetron 4 mg PO Q8H PRN #10 tab 02/27/21 [Rx Last Taken Unknown] Allergy/AdvReac Type Severity Reaction Status Date / Time oxycodone AdvReac Itching Verified 02/27/21 04:57 Social History Smoking Status: Current every day smoker tobacco type: cigarettes ROS ROS ED Constitutional Constitutional ED: Denies chills or fever(s) Eyes Eyes: Denies change in vision ENT ENT ED: Denies sore throat Cardiovascular Cardiovascular: Denies chest pain Respiratory/Chest Respiratory/Chest: Denies cough or dyspnea Gastrointestinal Gastrointestinal: Reports abdominal pain, nausea and vomiting; Denies diarrhea Genitourinary Genitourinary ED: Denies dysuria Musculoskeletal Musculoskeletal: Denies back pain Integumentary Denies rash Neurologic Neurologic: Reports headache(s); Denies weakness Psychiatric Psychiatric: Denies anxiety or depression Endocrine Endocrinology: Denies polydipsia or polyuria Allergic/Immunologic Allergic/Immunologic ED: Denies urticaria EXAM Physical Exam Const Vital Signs: 02/27/21 04:55 02/27/21 04:56 02/27/21 05:57 Temperature 98.2 F 98.2 F 98.2 F Temperature Source Oral Oral Oral Pulse Rate 85 85 85 Respiratory Rate 16 16 16 Blood Pressure 173/90 H 173/90 H 173/90 H Blood Pressure Mean 117 117 117 Pulse Ox 98 98 98 02/27/21 07:43 Temperature Temperature Source Pulse Rate 80 Respiratory Rate 18 Blood Pressure 168/72 H Blood Pressure Mean Pulse Ox 96 Positive well nourished and well developed General Appearance ED: well developed HEENT Reports normocephalic and head/scalp atraumatic Eyes PERRL and EOMs intact bilaterally Neck supple Chest Wall inspection of chest normal and palpation of chest normal Resp normal respiratory effort and clear to auscultation bilaterally Cardio regular rate and regular rhythm GI Auscultation: hypoactive bowel sounds Palpation: soft and tender other (Appropriate postop tenderness. No guarding or rebound.) Extremity normal to inspection Neuro oriented x3 and no sensory deficits noted Sensorium / Orientation: alert Motor Exam: strength 5/5 throughout Psych mental status grossly normal Skin General Skin Exam: other Surgical wounds appear clean and dry. MDM MDM MDM Narrative Medical decision making narrative: Patient was given Toradol, Reglan, Benadryl, IV fluids. Acute abdominal series is obtained. Blood work and urinalysis are obtained. Lab Data Attestation: I reviewed the patient's lab results. Labs: Laboratory Results - last 24 hr 02/27/21 02/27/21 02/27/21 05:09 05:45 05:45 WBC 12.2 H RBC 4.02 L Hgb 13.1 Hct 38.6 MCV 96.0 MCH 32.6 H MCHC 33.9 RDW Std Deviation 44.4 H RDW Coeff of Job 12.6 Plt Count 199 MPV 10.5 Immature Gran % (Auto) 0.400 Neut % (Auto) 86.8 H Lymph % (Auto) 6.6 L [place] % (Auto) 5.6 Eos % (Auto) 0.4 Baso % (Auto) 0.2 Absolute Neuts (auto) 10.6 H Absolute Lymphs (auto) 0.81 L Nucleated RBC % 0 Sodium 142 Potassium 3.5 Chloride 110 H Carbon Dioxide 25.0 Anion Gap 7 BUN 5 L Creatinine 0.75 Estim Creat Clear Calc 74.23 Est GFR (MDRD) Af Amer 104 Est GFR (MDRD) Non-Af 86 BUN/Creatinine Ratio 6.6 L Glucose 149 H Calcium 8.6 Urine Color Yellow Urine Clarity Clear Urine pH 6.5 Ur Specific [place] 1.010 Urine Protein Negative Urine Glucose (UA) Normal Urine Ketones 5 H Urine Occult Blood 25 H Urine Nitrite Negative Urine Bilirubin Negative Urine Urobilinogen Normal Ur Leukocyte Esterase Negative Urine RBC 0-5 SEEN Urine WBC 0 SEEN Ur Squamous Epith Cells 0 SEEN Urine Bacteria 0 SEEN Urine Mucus 0 SEEN Radiography Diagnostic Testing: Radiology Impression Acute Abdomen Series 02/27/21 05:18 IMPRESSION: Negative x-ray examination of the chest, abdomen, and pelvis. Electronically Signed: Fabrice Sawyer MD at 6:34 EDT Tel , Service support , Treatment and Re-Evaluation Comments:: Acute abdominal series per my interpretation reveals a few bowel lo ops with air. Per radiology interpretation no evidence of ileus. Blood work is unremarkable. Urine is clean. On repeat evaluation patient's headache is significantly improved. She had previously been written for Percocet but feels that that is making her sick. We will write her for [place] along with Zofran. She was advised to take Zofran along with something to eat and then follow that with the pain medication. I did speak with Dr. Chavez prior to the patient's discharge. He did asked the patient also be sent home on Augmentin as she did have perforated appendicitis. Patient was advised to follow a clear liquid diet today and slowly advance. Discharge Plan Triage Chief Complaint: Nausea/Vomiting ED Provider: Tanisha Kelly Dx/Rx/DC Orders Clinical Impression: Cephalgia, Vomiting Instructions: ED, Migraine (Classical), ED Vomiting (Adult) Prescriptions: New hydrocodone-acetaminophen 5-325 mg tablet 1 tab PO Q6H PRN (Reason: pain) 3 Days Qty: 10 RF: 0 ondansetron 4 mg tablet,disintegrating 4 mg PO Q8H PRN (Reason: nausea and vomiting) Qty: 10 RF: 0 amoxicillin-pot clavulanate [Augmentin] 875-125 mg tablet 1 tab PO BID Qty: 20 RF: 0 No Action acetaminophen [Tylenol] 325 mg Tablet 650 mg PO Q4H PRN PRN (Reason: Pain 1-10 Or Fever) Qty: 0 RF: 0 Primary Care Provider: Care Physician,No Primary Referrals: Breezy Chavez MD [STAFF PHYSICIAN] - 1 Week Care Physician,No Primary [Primary Care Provider] - Disposition Disposition: Home, self care Discharge Date/Time: 02/27/21 07:44
[2021-02-27 07:43] VITALS: BP 168/72; PULSE 80; RESP 18; O2SAT 96
== END 2021-02-27 07:44 | disposition home or self-care (01) ==
PROVIDERS: Emergency Provider Emergency Medicine
DX: R11.2 Nausea with vomiting, unspecified (principal); R51.9 Headache, unspecified; F17.210 Nicotine dependence, cigarettes, uncomplicated; Z87.442 Personal history of urinary calculi; Z98.890 Other specified postprocedural states
CPT/HCPCS: 74022; 80048; 81001; 85025; 96374; 96375; 99284; J7040

== ENCOUNTER → 2022-05-03 | Outpatient (CLI) | payer BC, SELFPAY ==
[2022-05-03 16:41] LABS: Absolute Lymphocyte Count 2.88 X10^3/uL (0.83-4.51); Absolute Neutrophil Count 4.5 X10^3/uL (2.0-7.7); Basophil# 0.05 X10^3/uL; Basophil% 0.6 % (0-1); Eosinophil# 0.19 X10^3/uL; Eosinophils% 2.3 % (0-5); Hematocrit 43.3 % (37-47); Hemoglobin 15.3 g/dL (12.0-15.0); Lymphocyte # 2.88 X10^3/ul (0.83-4.51); Lymphocyte % 34.7 % (19-41); Mean Corp Hgb Conc 35.3 g/dL (32-36); Mean Corpuscular Hgb 33.6 pg (27.0-32.0); Mean Platelet Vol. 9.9 fl (6.2-12.0); Monocyte# 0.64 X10^3/uL; Monocyte% 7.7 % (0-10); NRBC Flagged by Analyzer 0 % (0-5); Neutrophil # 4.51 X10^3/uL (2.7-7.7); Neutrophil % 54.3 % (47-70); Platelet Count 293 K/mm3 (150-450); RBC Distribution Width SD 45.2 fl (35.1-43.9); Red Blood Count 4.56 M/mm3 (4.2-5.4); White Blood Count 8.3 K/mm3 (4.4-11.0)
[2022-05-03 17:35] LABS: ALB/GLOB Ratio 1.1 RATIO (0.9-2.4); AST(SGOT) 17 U/L (15-37); Alanine Aminotransfer ALT/SGPT 29 U/L (13-56); Albumin, Serum 3.8 g/dL (3.2-5.0); Alkaline Phosphatase 89 U/L (45-117); Anion Gap 6 (5-15); BUN 16 mg/dL (7-18); BUN/Creat Ratio 17.9 RATIO (10-20); Calcium,Total 9.6 mg/dL (8.5-10.1); Chloride 108 mmol/L (98-107); Cholesterol 267 mg/dL (200); Creatinine, Serum 0.89 mg/dL (0.55-1.02); EST Glomerular Filtration Rate 71 mL/min (>60); Est Glom Filt Rate - Afr Amer 85 mL/min (>60); Globulin 3.6 g/dL (2.2-4.2); Glucose 135 mg/dL (74-106); High Density Lipoprotein 46 mg/dL; Potassium 3.6 mmol/L (3.5-5.1); Protein, Total 7.4 g/dL (6.4-8.2); Sodium Level 141 mmol/L (136-145); Triglycerides 204 mg/dL; Very Low Density Lipoprotein 41 mg/dL (5-40)
[2022-05-04 09:13] LABS: Hemoglobin A1c 5.8 % (3.8-5.6)
== END | disposition home or self-care (01) ==
LOC: BIMLAB 16:12
PROVIDERS: PCP Internal Medicine; Referring Provider Internal Medicine; Visit Provider Internal Medicine
DX: I10 Essential (primary) hypertension (principal); R73.9 Hyperglycemia, unspecified
CPT/HCPCS: 36415; 80053; 80061; 83036; 85025

== ENCOUNTER → 2022-10-18 | Outpatient (CLI) | payer BC, SELFPAY ==
[2022-10-18 16:59] LABS: Absolute Lymphocyte Count 2.92 X10^3/uL (0.83-4.51); Absolute Neutrophil Count 5.4 X10^3/uL (2.0-7.7); Basophil# 0.05 X10^3/uL; Basophil% 0.5 % (0-1); Eosinophil# 0.21 X10^3/uL; Eosinophils% 2.2 % (0-5); Hematocrit 42.6 % (37-47); Hemoglobin 14.5 g/dL (12.0-15.0); Lymphocyte # 2.92 X10^3/ul (0.83-4.51); Lymphocyte % 31.2 % (19-41); Mean Corpuscular Hgb 32.7 pg (27.0-32.0); Mean Corpuscular Volume 96.2 fL (81-99); Monocyte# 0.79 X10^3/uL; Monocyte% 8.4 % (0-10); NRBC Flagged by Analyzer 0 % (0-5); Neutrophil # 5.35 X10^3/uL (2.7-7.7); Neutrophil % 57.3 % (47-70); Platelet Count 250 K/mm3 (150-450); RBC Distribution Width CV 12.8 % (11.6-14.6); RBC Distribution Width SD 45.2 fl (35.1-43.9); Red Blood Count 4.43 M/mm3 (4.2-5.4); White Blood Count 9.4 K/mm3 (4.4-11.0)
[2022-10-18 18:01] LABS: AST(SGOT) 15 U/L (15-37); Alanine Aminotransfer ALT/SGPT 30 U/L (13-56); Albumin, Serum 3.7 g/dL (3.2-5.0); Alkaline Phosphatase 85 U/L (45-117); Anion Gap 7 (5-15); BUN 11 mg/dL (7-18); Calcium,Total 9.9 mg/dL (8.5-10.1); Chloride 106 mmol/L (98-107); Cholesterol 262 mg/dL (200); Creatinine, Serum 0.79 mg/dL (0.55-1.02); EST Glomerular Filtration Rate 82 mL/min (>60); Est Glom Filt Rate - Afr Amer 99 mL/min (>60); Globulin 3.8 g/dL (2.2-4.2); Glucose 106 mg/dL (74-106); High Density Lipoprotein 54 mg/dL; Potassium 3.7 mmol/L (3.5-5.1); Protein, Total 7.5 g/dL (6.4-8.2); Sodium Level 140 mmol/L (136-145); Triglycerides 213 mg/dL; Very Low Density Lipoprotein 43 mg/dL (5-40)
== END | disposition home or self-care (01) ==
LOC: BIMLAB 16:18
PROVIDERS: PCP Internal Medicine; Referring Provider Internal Medicine; Visit Provider Internal Medicine
DX: I10 Essential (primary) hypertension (principal); E78.5 Hyperlipidemia, unspecified; R04.0 Epistaxis
CPT/HCPCS: 36415; 80053; 80061; 85025

== ENCOUNTER → 2023-04-26 | Outpatient (CLI) | payer BC, SELFPAY ==
[2023-04-26 09:27] LABS: Hemoglobin A1c 6.2 % (3.8-5.6)
[2023-04-26 09:36] LABS: ALB/GLOB Ratio 1.1 RATIO (0.9-2.4); AST(SGOT) 26 U/L (15-37); Alanine Aminotransfer ALT/SGPT 47 U/L (13-56); Albumin, Serum 3.7 g/dL (3.2-5.0); Alkaline Phosphatase 79 U/L (45-117); Anion Gap 2 (5-15); BUN 14 mg/dL (7-18); BUN/Creat Ratio 16.4 RATIO (10-20); Calcium,Total 9.1 mg/dL (8.5-10.1); Chloride 107 mmol/L (98-107); Cholesterol 260 mg/dL (200); Creatinine, Serum 0.85 mg/dL (0.55-1.02); EST Glomerular Filtration Rate 74 mL/min (>60); Est Glom Filt Rate - Afr Amer 90 mL/min (>60); Globulin 3.5 g/dL (2.2-4.2); Glucose 146 mg/dL (74-106); High Density Lipoprotein 47 mg/dL; Potassium 3.9 mmol/L (3.5-5.1); Protein, Total 7.2 g/dL (6.4-8.2); Sodium Level 137 mmol/L (136-145); Triglycerides 165 mg/dL; Very Low Density Lipoprotein 33 mg/dL (5-40)
== END | disposition home or self-care (01) ==
PROVIDERS: PCP Nurse Practitioner Family; Referring Provider Nurse Practitioner Family; Visit Provider Nurse Practitioner Family
DX: Z13.1 Encounter for screening for diabetes mellitus (principal); Z13.6 Encounter for screening for cardiovascular disorders
CPT/HCPCS: 36415; 80053; 80061; 83036

== ENCOUNTER 2023-12-12 17:33 | Emergency (ER) | payer BC, SELFPAY ==
[2023-12-12 17:33] VITALS: BP 161/93; PULSE 112; RESP 16; TEMP 36.6; O2SAT 96; BMI 37.2
--- NOTE | 2023-12-12 17:45 | ED.RN ---
PT TO PAIN ABOVE UMBILICOUS, PT STATES THAT SHE PUSHES ON IT AND PUSHES IT IN AND THE PAIN GOES AWAY.
--- NOTE | 2023-12-12 17:51 | CT_ITS ---
STUDY: CT ABDOMEN AND PELVIS WITH CONTRAST REASON FOR EXAM: Female, 53 years old. abdominal pain -- IV PO Contrast RADIATION DOSAGE (If Supplied By Facility): CTDIvol = ( 18.05 ) mGy, DLP = ( 1359.94 ) mGycm TECHNIQUE: Transaxial images were obtained from the dome of the diaphragm to the symphysis pubis without oral contrast. Oral and amp; IV Gastrografin and amp; 100mL Isovue-300 was administered. Sagittal and coronal images were reconstructed. Individualized dose optimization techniques were used for this CT. COMPARISON: February 25, 2021 FINDINGS: The visualized lung bases are unremarkable. The visualized portions of the heart are within normal limits. Liver is enlarged and fatty infiltrated without mass or bile duct dilatation. There is calcification of the sales of the gallbladder but no definitive evidence for gallstones or acute laboratory changes.. Normal spleen. Normal pancreas. Normal bilateral adrenal glands. No evidence for renal obstruction. There is a right renal cyst which will not require additional imaging Normal visualized stomach. Normal small intestine. Diffusely fatty infiltrated ileocecal valve Normal colon. Appendix not visualized consistent with prior appendectomy. Minor atherosclerotic changes of the aorta without evidence for aneurysm. Normal inferior vena cava. Normal retroperitoneum. Normal urinary bladder. There is a small fat-containing supraumbilical hernia with mild stranding of fat possibly representing early changes of incarceration. Lumbar spine demonstrates degenerative change. Small left ovarian cyst is noted. The periumbilical hernia is new finding since prior exam CT/Abdomen/Pelvis WITH Contrast IMPRESSION: Mild calcification of the gallbladder wall without evidence for intraluminal calcified gallstones. No evidence for small bowel obstruction. Small fat-containing umbilical hernia with mild stranding of fat possibly representing incarceration. Clinical correlation recommended Electronically Signed: Connor Hood MD at 21:13 EDT ,
--- NOTE | 2023-12-12 17:51 | ED.VIS.GI ---
HPI HPI - GI History of Present Illness Chief Complaint: Abd Pain Detail of Chief Complaint: Abdominal pain Informant: patient Narrative Narrative: Patient presents with abdominal pain since waking up this morning. Patient states that she has had a lump in her upper abdomen that she could push back and at times it felt like a balloon. That lump has been there for over a year. Patient states that she developed an illness exactly a week ago where she had vomiting for about 12 hours and she ended up taking Pepto-Bismol. She felt better and improved but then started getting allergies this week. She has been coughing. She was coughing forcefully yesterday and now having this abdominal pain and pain over the lump in her upper abdomen. She has had no fevers. Patient also has a foul odor to her urine. [facility] Medical History (Updated 12/12/23 @ 21:[address] Kvng Almeida, ) Acute sinusitis, unspecified Alcohol use Elevated blood pressure reading without diagnosis of hypertension Epistaxis Hyperglycemia Hyperlipidemia Hypertension Kidney stones Localized swelling, mass and lump, neck Mood disorder Post-op pain Right tennis elbow Smoker Toe pain, left Home Medications ascorbate calcium (vitamin C) 500 mg tablet 500 mg PO DAILY 04/19/21 [History Last Taken Unknown] rbhxoee-vetxxaxarqbbh-avbibjmb 250 mg-250 mg-65 mg tablet (Excedrin Migraine) 1 tab PO ONCE 04/19/21 [History Last Taken Unknown] cholecalciferol (vitamin D3) 25 mcg (1,000 unit) capsule 25 mcg PO DAILY 10/18/21 [History Last Taken Unknown] rosuvastatin 40 mg tablet 40 mg PO DAILY #90 tabs 10/18/22 [Rx Last Taken Unknown] amoxicillin 875 mg-potassium clavulanate 125 mg tablet 1 tab PO BID #20 tabs 11/07/22 [Rx Last Taken Unknown] amlodipine 5 mg tablet See Rx Instructions .Route .COMPLEX #90 tabs 04/15/23 [Rx Last Taken Unknown] hydrocodone-acetaminophen 5-325mg 5mg-325mg 1 tab PO Q4H PRN PRN Pain 2 days #15 TABLETS 12/12/23 [Rx Last Taken Unknown] Allergy/AdvReac Type Severity Reaction Status Date / Time oxycodone AdvReac Itching Verified 12/12/23 17:33 Family History Father Alcoholism Liver disease Mother Hypertension CVA (cerebral vascular accident) Diabetes Surgical History History of appendectomy Social History Smoking Status: Current every day smoker tobacco type: cigarettes alcohol intake: never substance use type: does not use what type of physical activity do you participate in: none ROS ROS ED Review of Systems ROS Unobtainable: other Constitutional Constitutional ED: Reports lethargy; Denies chills, fever(s), sweats or weight loss Eyes Eyes: Denies blurry vision, change in vision or diplopia ENT ENT ED: Denies rhinorrhea or sore throat Cardiovascular Cardiovascular: Reports chest pain and racing heartbeat; Denies orthopnea Respiratory/Chest Respiratory/Chest: Reports dyspnea and dyspnea on exertion; Denies cough, orthopnea or sputum Gastrointestinal Gastrointestinal: Reports abdominal pain, nausea and vomiting; Denies diarrhea Genitourinary Genitourinary ED: Reports other; Denies dysuria, hematuria or urinary frequency Musculoskeletal Musculoskeletal: Denies arthralgias, back pain, myalgias or neck pain Integumentary Denies abscess, Abrasions or rash Neurologic Neurologic: Denies headache(s) or weakness Psychiatric Psychiatric: Denies anxiety, depression or suicidal thoughts Endocrine Endocrinology: Denies polydipsia, polyphagia or polyuria Hematologic/Lymphatic Hematologic/Lymphatic: Denies easy bleeding, easy bruising or lymphadenopathy Allergic/Immunologic Allergic/Immunologic ED: Denies mouth swelling, tongue swelling or urticaria EXAM Physical Exam Const Vital Signs: 12/12/23 17:33 12/12/23 19:33 Temperature 97.8 F Temperature Source Temporal Pulse Rate 112 H 67 Respiratory Rate 16 14 Blood Pressure 161/93 H 134/90 H Blood Pressure Mean 115 104 Pulse Ox 96 98 Oxygen Delivery Method Room Air Room Air Positive well nourished and well developed General Appearance ED: well developed and NAD HEENT Reports TM's clear and moist mucous membranes normocephalic and atraumatic; Negative for trauma or tenderness Tympanic Membrane ED: Yes TM's clear Eyes PERRL and EOMs intact bilaterally General Eye ED: Negative for pale conjunctiva or scleral icterus Neck no lymphadenopathy, supple and no JVD General: Negative for tenderness Chest Wall inspection of chest normal and palpation of chest normal Chest: Negative for tenderness Resp normal respiratory effort and clear to auscultation bilaterally Effort and Inspection: Negative for respiratory distress or pain with movement Auscultation: Negative for rhonchi, wheezes or diminished lung sounds Cardio regular rate, regular rhythm, S1 normal heart sound, S2 normal heart sound and no murmurs Peripheral Pulses: pulses 2+ throughout GI normal to inspection, nondistended, normoactive bowel sounds, soft to palpation, non-distended and no masses GI Narrative: Patient has a ventral hernia noted on exam. I had patient lay flat was able to push on the area and reduce the suspected hernia. She developed nausea as I did this. Patient also having tenderness in the right upper quadrant with some guarding. There is no erythema or warmth noted to the abdominal wall. There is no firmness or induration noted. Back/Spine no CVA tenderness and no thoracic nor lumbar tenderness Extremity normal to inspection General Extremety ED: Negative for edema General Extremity: Negative for edema Neuro oriented x3, CN's II-XII intact bilaterally, no sensory deficits noted and gait normal Sensorium / Orientation: awake, alert, oriented to person, oriented to place and oriented to time Motor Exam: strength 5/5 throughout and strength abnormal Psych mental status grossly normal Skin no rashes or lesions noted and no wounds MDM MDM MDM Narrative Medical decision making narrative: Patient presents with hernia and abdominal pain. Also foul odor to urine. In the differential would be incarcerated hernia. She also has tenderness over right upper quadrant will evaluate gallbladder. Will also check urinalysis. Patient did not anything for pain. She will be given a dose of Zofran. Patient had a CBC with differential count of 8.3 with hemoglobin 14.4 and platelet count of 231. Chemistries were unremarkable. LFTs showed a slightly elevated ALT of 65 with a normal AST of 36 and normal total bilirubin of 0.4. Alkaline phosphatase was normal at 101. Urinalysis was normal. CT scan of the abdomen pelvis with IV and p.o. contrast obtained showed a small fat-containing umbilical hernia with small amount of stranding which may represent incarcerated fat. Patient also noted to have some gallstones. Patient did receive 4 mg of morphine 4 mg of Zofran and was feeling more comfortable. Discussed case with general surgeon on-call who recommended patient follow-up with her office. Will write her prescription for hydrocodone for pain. Advised to return if worsening pain, fever, vomiting, increased swelling, or condition should worsen anyway. Lab Data Attestation: I reviewed the patient's lab results. Labs: Laboratory Results - last 24 hr 12/12/23 12/12/23 18:00 18:50 WBC 8.3 RBC 4.56 Hgb 14.4 Hct 41.7 MCV 91.4 MCH 31.6 MCHC 34.5 RDW Std Deviation 41.8 RDW Coeff of Job 12.6 Plt Count 231 MPV 10.2 Immature Gran % (Auto) 0.200 Neut % (Auto) 63.0 Lymph % (Auto) 23.3 [place] % (Auto) 11.0 H Eos % (Auto) 1.9 Baso % (Auto) 0.6 Absolute Neuts (auto) 5.2 Absolute Lymphs (auto) 1.93 Nucleated RBC % 0 Sodium 140 Potassium 3.3 L Chloride 108 H Carbon Dioxide 27.0 Anion Gap 5 BUN 14 Creatinine 0.80 Estim Creat Clear Calc 89.28 Est GFR (MDRD) Af Amer 96 Est GFR (MDRD) Non-Af 79 BUN/Creatinine Ratio 17.4 Glucose 132 H Lactic Acid 1.4 Calcium 9.7 Total Bilirubin 0.40 AST 36 ALT 65 H Alkaline Phosphatase 101 Total Protein 7.4 Albumin 3.9 Globulin 3.5 Albumin/Globulin Ratio 1.1 Lipase 35 Urine Color Yellow Urine Clarity Clear Urine pH 6.5 Ur Specific [place] 1.010 Urine Protein Negative Urine Glucose (UA) Normal Urine Ketones Negative Urine Occult Blood 10 H Urine Nitrite Negative Urine Bilirubin Negative Urine Urobilinogen Normal Ur Leukocyte Esterase Negative Urine RBC 0 SEEN Urine WBC 0 SEEN Ur Squamous Epith Cells 0-5 SEEN Urine Bacteria 0 SEEN Urine Mucus 0 SEEN Radiography Diagnostic Testing: Clinical Impression(s) from Imaging Studies Abdomen/Pelvis CT 12/12/23 17:51 IMPRESSION: Mild calcification of the gallbladder wall without evidence for intraluminal calcified gallstones. No evidence for small bowel obstruction. Small fat-containing umbilical hernia with mild stranding of fat possibly representing incarceration. Clinical correlation recommended Electronically Signed: Connor Hood MD at 21:13 EDT , Discharge Plan Triage Chief Complaint: Abd Pain ED Provider: Kvng Almeida Dx/Rx/DC Orders Clinical Impression: Hernia, umbilical, Gallstones, Abdominal pain Instructions: ED Hernia (Adult) Prescriptions: New hydrocodone-acetaminophen [hydrocodone-acetaminophen] 5-325 mg tablet 1 tab PO Q4H PRN PRN (Reason: Pain) 2 Days Qty: 15 0RF No Action ascorbate calcium (vitamin C) 500 mg tablet 500 mg PO DAILY Excedrin Migraine 250-250-65 mg tablet 1 tab PO ONCE cholecalciferol (vitamin D3) 25 mcg (1,000 unit) capsule 25 mcg PO DAILY rosuvastatin 40 mg tablet 40 mg PO DAILY Qty: 90 3RF amoxicillin-pot clavulanate 875-125 mg tablet 1 tab PO BID Qty: 20 0RF amlodipine 5 mg tablet See Rx Instructions .ROUTE .COMPLEX Qty: 90 0RF Dose Instruction: take 1 tablet by mouth once daily Rx Instructions: take 1 tablet by mouth once daily Primary Care Provider: Parveen Culp NP Referrals: Guadalupe Edwards MD [Med Staff - Active Staff] - 3-5 Days Parveen Culp NP, [employer]-[facility] [Primary Care Provider] - Disposition Disposition: Home, Self Care
[2023-12-12] MEDS: Ondansetron 4 MG/2 ML Vial IV ×2 (18:06→19:41)
[2023-12-12] MEDS: 0.9% Normal Saline (1000mL) 1,000 ML 125 ML IV (18:06)
[2023-12-12 18:10] LABS: Absolute Lymphocyte Count 1.93 X10^3/uL (0.83-4.51); Absolute Neutrophil Count 5.2 X10^3/uL (2.0-7.7); Basophil# 0.05 X10^3/uL; Basophil% 0.6 % (0-1); Eosinophil# 0.16 X10^3/uL; Eosinophils% 1.9 % (0-5); Hematocrit 41.7 % (37-47); Hemoglobin 14.4 g/dL (12.0-15.0); Lymphocyte # 1.93 X10^3/ul (0.83-4.51); Lymphocyte % 23.3 % (19-41); Mean Corp Hgb Conc 34.5 g/dL (32-36); Mean Corpuscular Hgb 31.6 pg (27.0-32.0); Mean Corpuscular Volume 91.4 fL (81-99); Mean Platelet Vol. 10.2 fl (6.2-12.0); Monocyte# 0.91 X10^3/uL; NRBC Flagged by Analyzer 0 % (0-5); Neutrophil # 5.23 X10^3/uL (2.7-7.7); Platelet Count 231 K/mm3 (150-450); RBC Distribution Width CV 12.6 % (11.6-14.6); RBC Distribution Width SD 41.8 fl (35.1-43.9); Red Blood Count 4.56 M/mm3 (4.2-5.4); White Blood Count 8.3 K/mm3 (4.4-11.0)
[2023-12-12 18:28] LABS: ALB/GLOB Ratio 1.1 RATIO (0.9-2.4); AST(SGOT) 36 U/L (15-37); Alanine Aminotransfer ALT/SGPT 65 U/L (13-56); Albumin, Serum 3.9 g/dL (3.2-5.0); Alkaline Phosphatase 101 U/L (45-117); Anion Gap 5 (5-15); BUN 14 mg/dL (7-18); BUN/Creat Ratio 17.4 RATIO (10-20); Calcium,Total 9.7 mg/dL (8.5-10.1); Chloride 108 mmol/L (98-107); EST Glomerular Filtration Rate 79 mL/min (>60); Est Glom Filt Rate - Afr Amer 96 mL/min (>60); Estimated Creatinine Clearance 89.28 ml/min; Globulin 3.5 g/dL (2.2-4.2); Glucose 132 mg/dL (74-106); Lipase 35 U/L (13-75); Potassium 3.3 mmol/L (3.5-5.1); Protein, Total 7.4 g/dL (6.4-8.2); Sodium Level 140 mmol/L (136-145)
[2023-12-12 18:36] LABS: Lactic Acid 1.4 mmol/L (0.4-1.9)
[2023-12-12 18:57] LABS: Bacteria 0 SEEN /hpf (None Seen); Mucous, Urine 0 SEEN /hpf (<or=2+); Red Blood Cells-Urine 0 SEEN /hpf (0-5); White Blood Cells 0 SEEN /hpf (0-5)
[2023-12-12 19:01] LABS: Color, Urine Yellow (Yellow); Glucose, Dipstick Normal (Normal); Ketone-Dipstick Negative (Negative); Leukocyte Esterase-Dipstick Negative /ul (Negative); Nitrite-Dipstick Negative (Negative); Occult Blood-Urine 10 /ul (Negative); Protein-Dipstick Negative (Negative); Urine Bilirubin Dipstick Negative (Negative); Urine Clarity Clear (Clear); Urine Urobilinogen Normal (Normal); Urine pH 6.5 (5.0 - 8.0)
[2023-12-12 19:11] LABS: Squamous Epithelial Cells - UA 0-5 SEEN /hpf (5-10)
[2023-12-12 19:33] VITALS: BP 134/90; PULSE 67; RESP 14; O2SAT 98
[2023-12-12] MEDS: Morphine 4 MG/ML Syringe IV (19:41)
[2023-12-12 21:00] VITALS: BP 139/89; PULSE 95; RESP 16; O2SAT 100
[2023-12-12 22:00] VITALS: BP 139/89; PULSE 95; RESP 16; TEMP 36.6; O2SAT 100
== END 2023-12-12 22:10 | disposition home or self-care (01) ==
PROVIDERS: Emergency Provider Emergency Medicine; PCP Nurse Practitioner Family; Visit Provider Emergency Medicine
DX: R10.9 Unspecified abdominal pain (principal); K42.9 Umbilical hernia without obstruction or gangrene; K80.20 Calculus of gallbladder without cholecystitis without obstruction; E78.5 Hyperlipidemia, unspecified; I10 Essential (primary) hypertension; Z79.82 Long term (current) use of aspirin; Z79.899 Other long term (current) drug therapy; Z90.49 Acquired absence of other specified parts of digestive tract; F17.210 Nicotine dependence, cigarettes, uncomplicated
CPT/HCPCS: 74177; 80053; 81001; 83605; 83690; 85025; 96361; 96374; 96375; 99283; J7030; Q9967; J2405

== ENCOUNTER → 2024-01-06 | Outpatient (CLI) | payer BC, SELFPAY ==
--- NOTE | 2024-01-06 07:54 | US_ITS ---
STUDY: ABDOMINAL ULTRASOUND - RIGHT UPPER QUADRANT REASON FOR VISIT: Female, 53 years old Possible gallstones -- F/U CT TECHNIQUE: Ultrasound evaluation of the right upper quadrant was performed with real-time and static murica-scale imaging. TECHNICAL QUALITY: Adequate. COMPARISON: Comparison is made with prior CT scan the abdomen and pelvis dated December 12, 2023. FINDINGS: Liver: The liver measures 16.7 cm. There is increased echogenicity consistent with fatty infiltration. The bile ducts are within normal limits. There is hepatic color flow. The direction of portal flow is hepatopetal. There is no demonstrated mass lesion. Gallbladder: Normal distended gallbladder. The gallbladder wall measures 2.6 mm. There is a negative sonographic Hyman''s sign. There is no pericholecystic fluid. There is a 1.1 cm gallstone in neck of the gallbladder. Adjacent to this, there is a 1.2 cm gallstone. Common Bile Duct (C.B.D.): The common bile duct measures 11 mm. Pancreas: Normal size of the head, body and tail of the pancreas. There is normal echogenicity of the pancreas. There is no demonstrated pancreatic mass or cyst. Right Kidney: Normal size of the right kidney. The right kidney measures 11.6 cm x 6.1 cm x 6 cm. Normal renal cortex. The right cortex measures 1.9 cm. There is a 4.9 cm x 4.3 cm x 3.4 cm right renal cyst. There is no right hydronephrosis. US/Gallbladder IMPRESSION: Fatty infiltration of the liver. Gallstones. Dilated common bile duct measuring 1.1 cm. Right renal cyst. Electronically Signed: Andrew Calixto MD at 11:05 EDT ,
== END | disposition home or self-care (01) ==
LOC: US 07:54
PROVIDERS: PCP Nurse Practitioner Family; Referring Provider Surgery; Visit Provider Surgery
DX: R10.9 Unspecified abdominal pain (principal)
CPT/HCPCS: 76705

== ENCOUNTER → 2024-01-08 | Outpatient (CLI) | payer BC, SELFPAY ==
[2024-01-08 11:01] LABS: Bacteria 0 SEEN /hpf (None Seen); Mucous, Urine 0 SEEN /hpf (<or=2+); Red Blood Cells-Urine 0 SEEN /hpf (0-5); White Blood Cells 0 SEEN /hpf (0-5)
[2024-01-08 11:22] LABS: Color, Urine Yellow (Yellow); Glucose, Dipstick Normal (Normal); Ketone-Dipstick Negative (Negative); Leukocyte Esterase-Dipstick Negative /ul (Negative); Nitrite-Dipstick Negative (Negative); Occult Blood-Urine 10 /ul (Negative); Protein-Dipstick Negative (Negative); Urine Bilirubin Dipstick Negative (Negative); Urine Clarity Sl. Cloudy (Clear); Urine Urobilinogen Normal (Normal); Urine pH 6.5 (5.0 - 8.0)
[2024-01-08 11:35] LABS: Squamous Epithelial Cells - UA 10-25 SEEN /hpf (5-10)
== END | disposition home or self-care (01) ==
LOC: LABSPEC 10:58
PROVIDERS: PCP Nurse Practitioner Family; Referring Provider Surgery; Visit Provider Surgery
DX: R39.198 Other difficulties with micturition (principal)
CPT/HCPCS: 81001

== ENCOUNTER 2024-01-17 10:49 | Day surgery (SDC) | payer BC, SELFPAY ==
--- NOTE | 2024-01-06 07:51 | EKG12_ITS ---
Test Reason : PRE OP Blood Pressure : / mmHG Vent. Rate : 088 BPM Atrial Rate : 088 BPM P-R Int : 140 ms QRS Dur : 076 ms QT Int : 350 ms P-R-T Axes : 033 -18 041 degrees QTc Int : 423 ms Normal sinus rhythm Normal ECG Confirmed by CATALINA MONZON, MUNDO ([id number]), city editor BRIGETTE HART ([id number]) on 01/13/2024 1:07:50 PM Referred By: Parveen Culp Confirmed By:MICHAEL ARNOLD MD
[2024-01-06 09:03] LABS: Potassium 3.7 mmol/L (3.5-5.1)
[2024-01-17] VITALS (11 sets, daily range): BP systolic 109–151; BP diastolic 60–127; PULSE 67–96; RESP 12–88; TEMP 36.6–36.8; O2SAT 94–99; BMI 33.7
[2024-01-17 11:19] LABS: Internal QC Validated? YES +Cl - CLEAR BKGD; Pregnancy, Urine Negative Negative
[2024-01-17] MEDS: Lactated Ringers 1,000 ML 15 ML IV (11:24)
--- NOTE | 2024-01-17 11:25 | RAD_ITS ---
INDICATION: LAP OSITO WITH IOC EXAMINATION/TECHNIQUE: One cine intraoperative images are presented for evaluation. Total Fluoroscopic Time: 20.3 seconds. Radiation dosage index: 10.42 mGy. COMPARISON: Gallbladder ultrasound of 01/06/2024 FINDINGS: No filling defects are identified. Prominent common bile duct. There is free passage into the duodenum. RAD/Cholangiogram/ O R,Initial IMPRESSION: Prominent common bile duct. No constant filling defect is seen. Electronically Signed: Ted Rey MD at 13:27 EDT ,
--- NOTE | 2024-01-17 11:32 | HP.PCM_ITS ---
History and Physical Date of Admission: 01/17/24 Intake Vital Signs 12/24/2409:06 01/07/2410:17 Height 5 ft 3 in Weight: 208 lb 2 oz BMI 36.8 BP 132/90 H 157/92 H Blood Pressure Location Rt brachial Rt brachial Position Sitting Sitting Respiration 18 17 Pulse 100 81 Pulse Source Monitor Monitor Temp 97.4 F L 96.6 F L Temp Source Temporal Temporal Pulse Oximetry (%) 99 99 Oxygen Delivery Method room air room air Intake Visit Reasons: discuss gb US and surgical options Chief Complaint: discuss gb US and surgical options Is patient in pain?: Yes Allergies oxycodone Adverse Reaction (Verified 01/08/24 10:19) Itching Medications ascorbate calcium (vitamin C) 500 mg tablet 500 mg PO DAILY 04/19/21 [History Confirmed 01/08/24] cholecalciferol (vitamin D3) 25 mcg (1,000 unit) capsule 25 mcg PO DAILY 10/18/21 [History Confirmed 01/08/24] rosuvastatin 40 mg tablet 40 mg PO DAILY #90 tabs 10/18/22 [Rx Confirmed 01/08/24] amlodipine 5 mg tablet 5 mg PO DAILY 01/03/24 [History Confirmed 01/08/24] valsartan 40 mg tablet 40 mg PO DAILY 01/03/24 [History Confirmed 01/08/24] PFSH Medical History Acute sinusitis, unspecified Arthritis Back pain Elevated blood pressure reading without diagnosis of hypertension Epistaxis Heartburn History of edema History of pain when walking Hyperglycemia Hyperlipidemia Hypertension Injury of back Localized swelling, mass and lump, neck Mood disorder Smoker Toe pain, left Wears glasses Surgical History History of appendectomy Hx of elbow surgery Family History Father Alcoholism Liver diseaseMother Hypertension CVA (cerebral vascular accident) Diabetes Social History Smoking Status: Current every day smoker tobacco type: cigarettes alcohol intake: never substance use type: does not use what type of physical activity do you participate in: none HPI HPI HPI: Patient is a 53-year-old female who is scheduled for surgery next week for ventral hernia. She was still having right upper quadrant pain so I ordered an ultrasound of the gallbladder. ROS General General: Yes weight change (weight loss) and fatigue; No appetite, colon cancer, breast cancer or weakness HEENT HEENT: No difficulty swallowing, eye injury, eye surgery, swollen glands or hoarseness Endo Endocrine: No thyroid disease, diabetes mellitus, thyroid cancer, Hair loss, heat intolerance or cold intolerance Skin Skin: No rash or changing moles Musc Musculoskeletal: Yes back problems and arthritis; No rheumatoid arthritis, gout or joint pain Cardio Cardiovascular: Yes high blood pressure; No murmur, pacemaker, heart disease, atrial fibrillation, heart attack, heart stent, palpitations, shortness of breat with exertion or chest pain Psych Psychiatric: No depression, anxiety or hearing voices Resp Respiratory: No shortness of breath, No sleep apnea, No cough, No COPD, No asthma, No emphysema and No wheezing Gastro Gastrointestinal: Yes abdominal pain, Yes nausea or vomiting, No diarrhea, Yes constipation, No blood in stool, Yes acid reflux, No hemorrhoids, No ulcers, Yes gallbladder problem and No black,tarry stools Michael Hematologic: No blood thinners, No blood disorders, No bleeding, No anemia and No blood clots Neuro Neurologic: No numbness, No tingling and No weakness Exam Const General: cooperative Orientation: alert and oriented x3 HENMT Head: normal to inspection Neck Neck: normal visual inspection and full ROM Chest Chest palpation & inspection: normal inspection of the chest Resp Effort & Inspection: normal respiratory effort Auscultation: clear to auscultation bilaterally Cardio Rate: regular rate Rhythm: regular rhythm GI Inspection: non-distended Palpation: soft, hernia ventral and nontender Skin General: no rashes or lesions noted Neuro General: patient alert and patient oriented x3 Extrem General: full ROM Psych Appearance: grossly normal Mental Status: mental status grossly normal Assessment and Plan Assessment and Plan (1) Cholelithiasis: Status: Acute Qualifiers: Cholelithiasis location: gallbladder Cholecystitis presence: without cholecystitis Biliary obstruction: without biliary obstruction Qualified Code(s): K80.20 - Calculus of gallbladder without cholecystitis without obstruction (2) Abdominal hernia: Status: Acute Qualifiers: Hernia type: ventral Obstruction and gangrene presence: without obstruction or gangrene Qualified Code(s): K43.9 - Ventral hernia without obstruction or gangrene Orders: Orders Urinalysis, Complete Today R39.198 - Other difficulties with micturition Plan The patient was scheduled for ventral hernia repair with mesh but her ultrasound did show 2 gallstones in the neck of the gallbladder. She is having right upper quadrant discomfort and does not feel well. I did recommend laparoscopic cholecystectomy. I will change her surgery next week to a laparoscopic cholecystectomy with cholangiograms and I will use her small ventral hernia as the port site and closed with suture on the way out. I informed her that I would not be able to close it with mesh as it is a contaminated case. She understands and is willing to proceed with laparoscopic cholecystectomy and ventral hernia repair without mesh. I discussed the procedure in detail with the patient. I discussed the risks, benefits, and alternatives of the procedure. I discussed the risks including but not limited to bleeding, infection, injury to surrounding organs such as the liver, bile duct, bowels. I did discuss the possibility of having to convert to an open procedure as well as the possibility that if any injuries occurred this may necessitate further surgery at a tertiary care center. Breezy Chavez MD Pager: [facility] [address] [place] [address] [address] [place] [address] Office: I have examined the patient and the H&P has been reviewed. There are no clinical changes since date of exam.
[2024-01-17] MEDS: Cefazolin 2 GM in 0.9% Normal Saline (100mL Bag) 100 ML IV (12:16)
--- NOTE | 2024-01-17 12:25 | GALL_PTH ---
PATIENT: TONA LEVINE LOC: [facility] U#:[id number] AGE/SX: 53/F ROOM: RE01/17/[address]: Dr. Breezy Chavez MD : 1970 BED: DIS: 01/17/2024 SPEC #: [id number] RECD: 01/17/24 13:08 STATUS: ROBERTA BRIE #: [id number] JACQUELINE: 01/17/24 12:[address]: Breezy Chavez DEPT: SURGICAL PATHOLOGY RECD BY: Sally Dietz ENTERED: 01/17/24 13:54 SP TYPE: SOFIA BALL DR: Parveen Culp, EMILY-C Tissues: A - Gallbladder, NOS B - HERNIA Procedures: Frozen Section (charge) Surgery Specimen Level II Surgery Specimen Level III HEADER OPERATION: Laparoscopic, cholecystectomy with IOC PRE-OP DIAGNOSIS: Cholelithiasis TISSUE SUBMITTED: A- Gallbladder, B- Hernia sac FROZEN SECTION DIAGNOSIS Gallbladder, cholecystectomy: Fibrosis, collagenosis with microcalcifications and chronic inflammation. MICROSCOPIC DIAGNOSIS A. Gallbladder, cholecystectomy: Chronic cholecystitis and cholelithiasis. See comment. B. Hernia sac: Pieces of fibroadipose and fibroconnective tissue, consistent with hernia sac. SJ/mr 01/22/24 COMMENT A. Thickened area of gallbladder wall shows marked fibrosis and calcifications. MICROSCOPIC DESCRIPTION Slides are reviewed. GROSS DESCRIPTION A. Received is one container labeled with the patient's name and designated gallbladder. The specimen consists of a gallbladder measuring 6.5 x 3.0 x 2.0 cm. The lumen contains one green and multiple chalky-yellow calculi. The external surface is pink-sorto, smooth and glistening for the most part and inked black. Focally it is granular, hemorrhagic and contains cautery artifact. The gallbladder wall measures up to 0.5 cm in thickness. The mucosa shows focal ulceration. Focal area of the gallbladder wall shows thickening and calcifications. Quilter Fixer sections are submitted as follows: 1- Frozen section, 2-5- More sections (cassette 5 is submitted after decalcification). Thickened area of gallbladder wall is submitted entirety. B. Received in fixative is one container labeled with the patient's name and designated Hernia sac. The specimen consists of two pieces of pink congested and hemorrhagic soft tissue measuring in aggregate 2.5 x 3.5 x 0.5cm. No mass lesion is identified. Quilter Fixer sections are submitted in one cassette. / JULY: 01/20/24 TC:3 CPT: 96054,15523,70371
[2024-01-17] MEDS: Bupiv/Epi 0.25% 30 ML Vial (12:33)
--- NOTE | 2024-01-17 13:33 | PCM.OPRPT ---
Report of Operation Date of Procedure: 01/17/24 Pre-Operative Diagnosis: Cholelithiasis and biliary colic and ventral hernia Post-Operative Diagnosis: Same Surgery/Procedure Performed:: Laparoscopic cholecystectomy with cholangiograms Ventral hernia repair Type of Anesthesia: General/Regional Specimen's removed: Hernia sac Gallbladder Estimated Blood Loss (mL): 10 Description of Procedure: After obtaining informed consent patient was brought back to the operating room. General anesthesia was induced. The abdomen was prepped and draped in usual sterile fashion. A small midline incision was made over the prior incision. The scar tissue was encountered and divided and the hernia sac was identified. The hernia sac was opened with scissors and then resected from the fascia. It was sent for pathology. Finger sweep was performed and the Zapien trocar was placed into the abdomen. The balloon was inflated. The abdomen was inflated to 15 mmHg. Next a camera was introduced into the abdomen and the abdomen was inspected. Next under direct visualization three 5-mm ports were placed one subxiphoid and 2 subcostal. Next the gallbladder was elevated and retracted toward the right shoulder. The peritoneum was stripped from the gallbladder. The infundibulum was located and retracted laterally. Next the triangle of Calot was dissected and the cystic duct and cystic artery were identified. Cholangiograms were performed. The Garcia clamp was used to clamp across the infundibulum and the catheter needle was inserted into the gallbladder. Under fluoroscopy contrast was instilled into the gallbladder and the common duct, cystic duct as well as proximal hepatic ducts were identified. There was good filling of the duodenum. There were no filling defects noted in the common bile duct. The clamp was removed as well as the needle and the infundibulum was grasped once more. Three hemolock clips were placed across the cystic duct. The cystic duct was then divided leaving 2 clips on the stump. The cystic artery was clipped and divided in the same fashion. The hook cautery was then used to take the gallbladder off of the gallbladder bed. Hemostasis was obtained. Gallbladder fossa was irrigated and no active bleeding or bile leakage was noted. Next the camera was introduced in the subxiphoid port. An Endopouch bag was placed through the umbilical port and the gallbladder was placed into it. The gallbladder was then removed through the umbilical incision. The camera was then reinserted through the umbilical port. The gallbladder fossa was inspected once more and noted to be hemostatic with no leaking bile. The abdomen was suctioned dry. The 5 mm ports were removed under direct visualization. The umbilical port was then removed and the air was removed from the abdomen. The hernia site was closed with interrupted 0 Nurolon sutures. The umbilical port site was irrigated local anesthetic was administered to all the incisions. All the incisions were closed with interrupted subcuticular 4-0 Monocryl sutures followed by Steri-Strips and dressings. The patient was awoken and taken to PACU in stable condition. Grafts/Implants Used: No mesh used due to clean contaminated case Admit VTE Documentation VTE Mechan Device Prophylaxis: SCD's
--- NOTE | 2024-01-17 13:35 | DCINST_ITS ---
Discharge Instructions Procedure Gallbladder Diet Discharge Diet: Light diet - advance as tolerated Activity Discharge Activity: May Not Drive (for 2-3 days or while taking narcotic pain medications.) and - (Do not drive, work heavy equipment or sign legal documents for 24 hours.) May shower in (days): 1 Lifting Restrictions: 20 lbs for 2 weeks Additional Activity Instructions:: Pain medication may cause nausea. You should typically eat light foods as you take your pain medications. Pain medication may also cause constipation. If this is a problem for you, please discuss with your doctor. Dressing / Incision Call your doctor if your incision/area has: Continuous Slow Oozing, Sudden Increased Bleeding, Increased Pain/ Swelling, Increased Redness and Foul Smelling Discharge Call your doctor if you observe: Fever of 101 or Higher Suture Line Care: Avoid Pulling/Pushing and Avoid Pinching/Bending Remove Dressing in: 2 days Additional Dressing/Incision Instructions:: Leave operative bandaids on for 2 days. When you remove dressing, leave Steri-Strips on until your follow-up appointment, or until the Steri-Strips fall off on their own. Follow Up Care Please Follow Up With: Breezy Chavez MD When: Please call to schedule 2 week follow up appointment. [phone] Test Results: Test results from this visit will be discussed in further detail at your follow- up appointment, if applicable. Discharge Plan Admission Attending Provider: Breezy Chavez Primary Care Provider: Parveen Culp NP Discharge Orders/Prescriptions Prescriptions: New hydrocodone-acetaminophen 5-325 mg Tablet 1 tab PO Q4H PRN PRN (Reason: Pain Score 6-10) 5 Days Qty: 20 0RF No Action ascorbate calcium (vitamin C) 500 mg tablet 500 mg PO DAILY cholecalciferol (vitamin D3) 25 mcg (1,000 unit) capsule 25 mcg PO DAILY rosuvastatin 40 mg tablet 40 mg PO DAILY Qty: 90 3RF valsartan 40 mg tablet 40 mg PO DAILY amlodipine 5 mg tablet 5 mg PO DAILY Rx Instructions: take 1 tablet by mouth once daily Referrals / Follow Up: Parveen Culp NP, [employer] [Primary Care Provider] - Disposition Disposition (needs filled in before D/C Order can be placed): Home, Self Care
[2024-01-17] MEDS: Ipratropium/Albuterol Sulfate 3 ML AMPUL.NEB INHALATION (13:47)
[2024-01-17] MEDS: HYDROcodone Bitartrate/Apap 5/325 Tablet PO (16:52)
== END 2024-01-17 17:02 | disposition home or self-care (01) ==
LOC: SDC 10:49 → AC 10:51
PROVIDERS: Anesthesiology; PCP Nurse Practitioner Family; Referring Provider Surgery; Visit Provider Surgery
PROC: (CPT 47610; principal; 2024-01-17 12:10)
PROC: 0WQF4ZZ Repair Abdominal Wall, Percutaneous Endoscopic Approach (ICD-10-PCS; CPT 47562; 2024-01-17 12:10)
DX: K80.20 Calculus of gallbladder without cholecystitis without obstruction (principal); K43.9 Ventral hernia without obstruction or gangrene; R39.198 Other difficulties with micturition; I10 Essential (primary) hypertension; E78.5 Hyperlipidemia, unspecified; F17.210 Nicotine dependence, cigarettes, uncomplicated; Z90.49 Acquired absence of other specified parts of digestive tract
CPT/HCPCS: 47562; 49591; 00790; 36415; 74300; 76000; 81025; 84132; 88302; 88304; 88331; 93005; 94640; J7120; J2405

== ENCOUNTER → 2024-04-29 | Outpatient (CLI) | payer BC, SELFPAY ==
[2024-04-29 09:28] LABS: Vitamin D,25 Hydroxy 33.7 ng/mL
[2024-04-29 09:30] LABS: ALB/GLOB Ratio 1.1 RATIO (0.9-2.4); AST(SGOT) 23 U/L (15-37); Alanine Aminotransfer ALT/SGPT 36 U/L (13-56); Albumin, Serum 3.8 g/dL (3.2-5.0); Alkaline Phosphatase 90 U/L (45-117); Anion Gap 6 (5-15); BUN 18 mg/dL (7-18); Chloride 108 mmol/L (98-107); Cholesterol 135 mg/dL (200); Creatinine, Serum 0.86 mg/dL (0.55-1.02); EST Glomerular Filtration Rate 73 mL/min (>60); Est Glom Filt Rate - Afr Amer 89 mL/min (>60); Globulin 3.4 g/dL (2.2-4.2); Glucose 148 mg/dL (74-106); High Density Lipoprotein 57 mg/dL; Potassium 4.1 mmol/L (3.5-5.1); Protein, Total 7.2 g/dL (6.4-8.2); Sodium Level 140 mmol/L (136-145); Triglycerides 92 mg/dL; Very Low Density Lipoprotein 18 mg/dL (5-40)
[2024-04-29 11:48] LABS: Hemoglobin A1c 6.2 % (3.8-5.6)
== END | disposition home or self-care (01) ==
PROVIDERS: PCP Nurse Practitioner Family; Referring Provider Nurse Practitioner Family; Visit Provider Nurse Practitioner Family
DX: E78.00 Pure hypercholesterolemia, unspecified (principal); E11.9 Type 2 diabetes mellitus without complications; I10 Essential (primary) hypertension; E55.9 Vitamin D deficiency, unspecified
CPT/HCPCS: 36415; 80053; 80061; 82306; 83036